=== PATIENT | female | born 1965 | race Caucasian/White ===

== ENCOUNTER 2023-11-02 11:27 | Outpatient (AMB) | payer OTHER, SELFPAY ==
--- NOTE | 2023-11-02 11:01 | MHC.PC.OV ---
Vital Signs 11/02/23 11:41 Height 5 ft 3.23 in Weight 208 lb 6 oz BMI 36.6 BP 108/86 Blood Pressure Location Lt brachial Position Sitting Respiration 16 Pulse 90 Pulse Source Pulse Oximeter Temp 97.9 F Temp Source Oral Pulse Oximetry (%) 99 Oxygen Delivery Method Room Air Intake Visit Reasons: new patient diabetes/ medication Intake Note: New patient visit Field Human Resources Manager Required: No Allergies acetaminophen [From Vicodin] Allergy (Mild, Verified 11/02/23 11:37) Nausea hydrocodone [From Vicodin] Allergy (Mild, Verified 11/02/23 11:37) Nausea Medication List - Last Reconciled 11/02/23 by Elida Segundo PA-C diltiazem HCl ER 120 mg PO DAILY empagliflozin (Jardiance) 10 mg PO DAILY metformin 500 mg PO BID metoprolol succinate ER 100 mg PO DAILY rosuvastatin 5 mg PO DAILY valsartan 160 mg PO DAILY Tobacco use date assessed: 11/02/23 Dental Screening Dental Screen Date: 11/02/23 Did you have a dental visit in the last 12 months?: No Did you have a dental problem in the last 6 months where you did not have access to dental care?: No Was dental information given to patient?: Patient has dentist HPI new patient diabetes/ medication HPI Details Patient is 58-year-old female who presents today to [facility]. She is transferring from a [facility]. She has a hx of SVT, htn, hyperlipidemia, and t2dm. -she does complain today of being sick with a cough and cold. In the past she has needed inhalers to help her with this. She says that she will get a little reactive airway with this but does not tolerate steroids due to the SVT. She also does not tolerate albuterol but needs levalbuterol as a nebulizer treatment. Overall feels like she is getting better. She does wake up in the morning wheezing. Endo: States that her diabetes is well managed. She is on metformin 500 mg twice a day, Jardiance 10 mg daily. Her last A1c was 6.5. She was diagnosed with type 2 diabetes 3 years ago. She is overdue for an eye exam. -she has a large fam hx t2dm. Declines any diabetic Education. She states that she has a very good understanding of diabetes and does not need help. -she is on an Arb and statin CV: Blood pressure today in the office is 108/86. She is on valsartan 160 mg daily, metoprolol 100 mg daily and diltiazem 120 mg daily. Cholesterol is controlled with Crestor 5 mg. Follows with cardiology q 4-6 months. She has never needed ablation. She has had 4 episodes of cardioversion. Mammogram: overdue pap: Feb 2023- reports wnl- Dr. Guadalupe Bone Density:overdue Former smoker-quit over 25 years ago. Colonoscopy: Overdue [facility] Medical History (Updated 11/02/23 @ 12:37 by Elida Segundo PA-C) Hernia SVT (supraventricular tachycardia) HTN (hypertension) Surgical History (Updated 11/02/23 @ 11:57 by Sara Paredes CMA) H/O section Family History (Updated 11/02/23 @ 11:56 by Sara Paredes CMA) Mother HTN (hypertension) High cholesterol Diabetes Thyroid disorder Father HTN (hypertension) High cholesterol Maternal Aunt No problems noted. Maternal Grandmother Diabetes Social History Housing: House Patient Tobacco Use Status: Former Tobacco user (quit 20 years ago) Cigarette Packs Per Day: 1 Years Smoked: 12 e-Cigarette/Vaping Use: Never Used Second Hand Smoke Exposure: No service: No Current occupational status: employed Current occupation: [employer] Current occupational exposures/hazards: No Cognitive needs: No Hearing needs: No Vision needs: Yes (reading glasses) Questionnaire PHQ-9 Over the last 2 weeks, how often have you been bothered by any of the following problems? 1. Little interest or pleasure in doing things: not at all 2. Feeling down, depressed, or hopeless: not at all 3. Trouble falling or staying asleep, or sleeping too much: not at all 4. Feeling tired or having little energy: not at all 5. Poor appetite or overeating: not at all 6. Feeling bad about yourself - or that you are a failure or have let yourself or your family down: not at all 7. Trouble concentrating on things, such as reading the newspaper or watching television: not at all 8. Moving or speaking so slowly that other people could have noticed. Or the opposite - being so fidgety or restless that you have been moving around a lot more than usual: not at all 9. Thoughts that you would be better off or of hurting yourself in some way: not at all Total score: 0 Depression Screening Interpretation: Negative Depression Screening Done: Yes 45081 - PHQ-9 Billing: Yes Source: Developed by Drs. Venkatesh Yang, Yany Meredith, Campos Castro and colleagues, with an educational jose elias from [employer]. Thrive Questionnaire Date Thrive assessed: 11/02/23 I am a: Patient What is your living situation today?: I have a steady place to live Within the past 12 months, did the food you bought not last and you didn't have the money to get more?: Never true Within the past 12 months, did you worry whether your food would run out before you got money to buy more?: Never true Do you have trouble paying for medicines?: No Do you have trouble getting transportation to medical appointments?: No Do you have trouble paying your heating and electricity bill?: No Do you have trouble taking care of your child, family member or friend?: No Do you have trouble with day-to-day activities such as bathing, preparing meals, shopping, managing finances, etc.?: No Are you currently unemployed and looking for a job?: No Are you interested in more education?: No Please select the resources that you would like help with: None Currently or been in a relationship where the following occur: No concerns reported THRIVE Score: 0 AUDIT C Alcohol Use Questionnaire (AUDIT-C) 1. How often do you have a drink containing alcohol?: 2-4 times a month 2. How many drinks containing alcohol do you have on a typical day when you are drinking?: 1 or 2 3. How often do you have six or more drinks on one occasion?: Never Total Score: 2 ABBIE-7 AMB Questionnaire ABBIE-7 Date ABBIE - 7 assessed: 11/02/23 Feeling nervous, anxious, or on edge: 0 = Not at all Not being able to stop or control worryin = Not at all Worrying too much about different things: 0 = Not at all Trouble relaxin = Not at all Being so restless that it is hard to sit still: 0 = Not at all Becoming easily annoyed or irritable: 0 = Not at all Feeling afraid as if something awful might happen: 0 = Not at all Total ABBIE-7 score (0-4 normal; 5-9 mild; 10-14 moderate; 15-21 severe): 0 Source: Developed by Drs. Venkatesh Yang, Yany Meredith, Campos Castro and colleagues, with an educational jose elias from [employer]. ABBIE-7 Assessment Billing ABBIE-7 Assessment Tool: ABBIE-7 Assessment 50684 Physical exam (Primary Care) Vital Signs: Last Vital Signs Temp 97.9 F 11/02/23 11:41 Pulse 90 11/02/23 11:41 Resp 16 11/02/23 11:41 BP 108/86 11/02/23 11:41 Pulse Ox 99 11/02/23 11:41 Oxygen Delivery Method Room Air 11/02/23 11:41 BMI result Body Mass Index 36.6 Tobacco/Smoking Status: Tobacco use Status Tobacco use date assessed 11/02/23 11/02/23 11:05 Patient Tobacco Use Status Former Tobacco user (quit 20 11/02/23 11:44 years ago) e-Cigarette/Vaping Use Never Used 11/02/23 11:05 PHQ-9: PHQ-9 Score PHQ-9: Total score 0 11/02/23 11:52 Depression Screening Interpretation: Negative Thrive Assessment: Date of Thrive Assessment Date Thrive assessed 11/02/23 11/02/23 11:52 Currently or been in a relationship where the following occur: No concerns reported Const Orientation/consciousness: patient oriented x3 HENMT Ears: hearing grossly normal bilaterally Neck Thyroid: Thyroid normal Lymphatic: no lymphadenopathy noted Resp Auscultation: clear to auscultation bilaterally Cardio Rate: regular rate Rhythm: regular rhythm Heart sounds: S1 normal heart sound present and S2 normal heart sound present GI Inspection: Yes normal to inspection Palpation (GI): Soft to palpation and Other GI palpation findings present (nontender, no cva tenderness) Auscultation: normoactive bowel sounds Rectal Exam - Female: deferred Skin General skin exam: no rashes or lesions noted Neuro General: patient oriented x3, gait normal and no focal motor deficits Assessment and Plan Assessment & Plan (1) HTN (hypertension): Code(s): I10 - Essential (primary) hypertension Qualifiers: Hypertension type: primary hypertension Qualified Code(s): I10 - Essential (primary) hypertension Plan: Continue current regimen. Managed by Cardiology (2) Controlled type 2 diabetes mellitus: Code(s): E11.9 - Type 2 diabetes mellitus without complications Qualifiers: Diabetes mellitus mcc insulin use: without intermediate school teacher use Diabetes mellitus complication status: without complication Qualified Code(s): E11.9 - Type 2 diabetes mellitus without complications Plan: Denies any known complications associated with the diabetes. Labs ordered today. We will follow up pending test results. Refills will be provided. (3) Hyperlipidemia: Code(s): E78.5 - Hyperlipidemia, unspecified Qualifiers: Hyperlipidemia type: pure hypercholesterolemia Qualified Code(s): E78.00 - Pure hypercholesterolemia, unspecified Plan: Lipids and LFTs ordered. Continue Crestor. (4) Paroxysmal SVT (supraventricular tachycardia): Code(s): I47.10 - Supraventricular tachycardia, unspecified Plan: Stable. Well-controlled with metoprolol and diltiazem. (5) Viral URI with cough: Code(s): J06.9 - Acute upper respiratory infection, unspecified Plan: Exam is reassuring. We will really feel nebulizer solution. We will start her on Asmanex to use. Advised to rinse mouth out with each use Plan Mammogram, bone density and colonoscopy ordered. Orders: Orders XR DEXA axial skeleton Today Z78.0 - Asymptomatic menopausal state Comprehensive Pooler. Panel Fast Today E11.9 - Type 2 diabetes mellitus without complications, E78.5 - Hyperlipidemia, unspecified, I10 - Essential (primary) hypertension, I47.10 - Supraventricular tachycardia, unspecified Microalbumin, Random (w Creat) Today E11.9 - Type 2 diabetes mellitus without complications, E78.5 - Hyperlipidemia, unspecified, I10 - Essential (primary) hypertension, I47.10 - Supraventricular tachycardia, unspecified MM screening mammo BI Today Z12.31 - Encounter for screening mammogram for malignant neoplasm of breast Complete Blood Count Auto Diff Today E11.9 - Type 2 diabetes mellitus without complications, E78.5 - Hyperlipidemia, unspecified, I10 - Essential (primary) hypertension, I47.10 - Supraventricular tachycardia, unspecified Hemoglobin A1c Today E11.9 - Type 2 diabetes mellitus without complications, E78.5 - Hyperlipidemia, unspecified, I10 - Essential (primary) hypertension, I47.10 - Supraventricular tachycardia, unspecified Lipid Panel Today E11.9 - Type 2 diabetes mellitus without complications, E78.5 - Hyperlipidemia, unspecified, I10 - Essential (primary) hypertension, I47.10 - Supraventricular tachycardia, unspecified TSH reflex Free T4 Today E11.9 - Type 2 diabetes mellitus without complications, E78.5 - Hyperlipidemia, unspecified, I10 - Essential (primary) hypertension, I47.10 - Supraventricular tachycardia, unspecified Referrals Gastroenterology Referral I47.10 - Supraventricular tachycardia, unspecified, Z12.11 - Encounter for screening for malignant neoplasm of colon Medications: New mometasone 100 mcg/actuation (Asmanex HFA) 1 puff inhalation BID 13 grams 1RF levalbuterol HCl 0.31 mg (3 mL) inhalation Q8H PRN 72 mL 1RF shortness of breath or wheezing Coding Level of Care Code New Pt Level 4 (18284) Complex EM visit Add On G2211 Diagnoses Primary hypertension I10 Hypertension type: primary hypertension Controlled type 2 diabetes mellitus without complication, without long-term current use of insulin E11.9 Diabetes mellitus intermediate school teacher insulin use: without intermediate school teacher use Diabetes mellitus complication status: without complication Pure hypercholesterolemia E78.00 Hyperlipidemia type: pure hypercholesterolemia Paroxysmal SVT (supraventricular tachycardia) I47.10 Viral URI with cough J06.9 Additional Codes ABBIE-7 Assessment Billing - ABBIE-7 Assessment Tool: ABBIE-7 Assessment [id number] ([id number])
[2023-11-02 11:41] VITALS: BP 108/86; PULSE 90; RESP 16; TEMP 36.6; O2SAT 99; BMI 36.6
== END 2023-11-02 15:18 | disposition home or self-care (01) ==
PROVIDERS: Visit Provider Physician Assistant
DX: I10 Essential (primary) hypertension (principal); E11.9 Type 2 diabetes mellitus without complications; I47.10 Supraventricular tachycardia, unspecified; E78.00 Pure hypercholesterolemia, unspecified; J06.9 Acute upper respiratory infection, unspecified
CPT/HCPCS: 99204; G2211

== ENCOUNTER 2023-11-14 07:40 | Outpatient (REF) | payer OTHER, SELFPAY ==
[2023-11-14 11:20] LABS: MANUAL DIFF FLAG NO
[2023-11-14 11:28] LABS: Basophils Absolute Auto 0.1 X10*3/uL (0.0-0.2); Basophils Percent Auto 1.1 % (0-2); Eosinophils Absolute Auto 0.2 X10*3/uL (0.0-0.4); Eosinophils Percent Auto 3.2 % (0-4); Hematocrit 46.1 % (37.0-47.0); Hemoglobin 15.5 g/dl (12.0-16.0); Imm Gran Abs Auto 0.03 X10*3/uL (0.00-0.03); Imm Gran Pct Auto 0.5 % (0.0-0.4); Lymphocytes Absolute Auto 2.1 X10*3/uL (1.2-4.9); Lymphocytes Percent Auto 33.6 % (20-40); Mean Corpuscular HGB Conc 33.6 g/dl (31.0-35.0); Mean Corpuscular Volume 95.2 fL (80.0-98.0); Mean Platelet Volume 9.9 fL (9.4-12.3); Monocytes Absolute Auto 0.6 X10*3/uL (0.1-1.2); Neutrophils Absolute Auto 3.2 x10*3/uL (2.0-8.3); Neutrophils Percent Auto 51.6 % (45-73); Platelet Count 297 X10*3/uL (160-400); Red Blood Count 4.84 X10*6/uL (4.20-5.50); Red Cell Distribution Width 11.9 % (11.0-16.0); White Blood Count 6.2 X10*3/uL (4.8-10.8)
[2023-11-14 11:45] LABS: Estimated Average Glucose 128 mg/dL; Hemoglobin A1c % 6.1 % (<6.0); Total Hemoglobin (HGBA1C) 3818.6153 umol/L
[2023-11-14 11:57] LABS: Alanine Aminotransferase 19 U/L (0-31); Albumin Level 4.2 g/dL (3.5-5.0); Alkaline Phosphatase 81 U/L (39-117); Anion Gap 13 (12-20); Aspartate Amino Transferase 13 U/L (5-31); Bilirubin Total 0.6 mg/dL (0.0-1.0); Blood Urea Nitrogen 14 mg/dL (9-16); Calcium 9.5 mg/dL (8.4-10.2); Carbon Dioxide 27 mmol/L (22-29); Chloride 106 mmol/L (96-108); Cholesterol 174 mg/dL (<200); Estimated Glomerular Filt Rate > 60; Glucose Fasting 139 mg/dL (60-99); HDL Cholesterol 42 mg/dL (>40); LDL Cholesterol Calculated 107 mg/dL (<100); Sodium 142 mmol/L (135-145); Triglycerides 128 mg/dL (<150)
[2023-11-14 12:03] LABS: TSH reflex Free T4 1.56 uIU/mL (0.32-4.0)
[2023-11-14 12:14] LABS: Microalbum/Creatinine Ratio Ur 6.5 ug/mg cr (<30)
== END 2023-11-14 07:41 | disposition home or self-care (01) ==
LOC: HO.WFDLDS 07:40
PROVIDERS: Visit Provider Physician Assistant
DX: E11.9 Type 2 diabetes mellitus without complications (principal); I10 Essential (primary) hypertension; E78.5 Hyperlipidemia, unspecified; I47.10 Supraventricular tachycardia, unspecified
CPT/HCPCS: 36415; 80053; 80061; 82043; 82570; 83036; 84443; 85025

== ENCOUNTER 2023-11-23 08:21 | Outpatient (AMB) | payer OTHER, SELFPAY ==
[2023-11-23 08:40] VITALS: BP 108/64; PULSE 82; RESP 14; O2SAT 95; BMI 35.9
--- NOTE | 2023-11-23 08:40 | A.OFFPC_ITS ---
Vital Signs 11/23/23 08:40 Height 5 ft 3.23 in Weight 204 lb 4 oz BMI 35.9 BP 108/64 Blood Pressure Location Rt brachial Position Sitting Respiration 14 Pulse 82 Pulse Source Pulse Oximeter Pulse Oximetry (%) 95 Oxygen Delivery Method Room Air Intake Visit Reasons: Regular visit Intake Note: Follow up. Discuss lab work Senior Data Integration Developer Required: No Allergies acetaminophen [From Vicodin] Allergy (Mild, Verified 11/23/23 08:40) Nausea hydrocodone [From Vicodin] Allergy (Mild, Verified 11/23/23 08:40) Nausea Medication List - Last Reconciled 11/23/23 by Elida Segundo PA-C diltiazem HCl ER 120 mg PO DAILY empagliflozin (Jardiance) 10 mg PO DAILY fluticasone propionate 110 mcg/actuation 1 puff inhalation BID levalbuterol HCl 0.31 mg (3 mL) inhalation Q8H PRN metformin 500 mg PO BID metoprolol succinate ER 100 mg PO DAILY rosuvastatin 5 mg PO DAILY valsartan 160 mg PO DAILY Tobacco use date assessed: 11/02/23 Dental Screening Dental Screen Date: 11/02/23 HPI Regular visit HPI Details Patient is 58-year-old female who presents today for a follow up. She states that she made this appointment to review her labs. She has a hx of SVT, htn, hyperlipidemia, and t2dm. -she does state since our last visit she has had a cough with some intermittent sputum production. She states it feels like her cold never fully went away. She has been using nebulizers in the morning which has been very helpful. No sinus pain but does intermittently feel congested. No fevers or chills. No shortness a breath. Endo: States that her diabetes is well managed. She is on metformin 500 mg twice a day, Jardiance 10 mg daily. Her last A1c was 6.5. She was diagnosed with type 2 diabetes 3 years ago. She is overdue for an eye exam. -she has a large fam hx t2dm. Declines any diabetic Education. She states that she has a very good understanding of diabetes and does not need help. -she is on an Arb and statin CV: Blood pressure today in the office is 108/64. She is on valsartan 160 mg daily, metoprolol 100 mg daily and diltiazem 120 mg daily. Cholesterol is controlled with Crestor 5 mg every other day. Follows with cardiology q 4-6 months. She has never needed ablation. She has had 4 episodes of cardioversion. Mammogram: overdue-ordered pap: Feb 2023- reports wnl- Dr. Guadalupe Bone Density:overdue-ordered Former smoker-quit over 25 years ago. Colonoscopy: Overdue -referred [facility] Medical History (Updated 11/02/23 @ 12:37 by Elida Segundo PA-C) Hernia SVT (supraventricular tachycardia) HTN (hypertension) Surgical History (Updated 11/02/23 @ 11:57 by Sara Paredes CMA) H/O section Family History (Updated 11/02/23 @ 11:56 by Sara Paredes CMA) Mother HTN (hypertension) High cholesterol Diabetes Thyroid disorder Father HTN (hypertension) High cholesterol Maternal Aunt No problems noted. Maternal Grandmother Diabetes Social History Housing: House Patient Tobacco Use Status: Former Tobacco user (quit 20 years ago) Cigarette Packs Per Day: 1 Years Smoked: 12 e-Cigarette/Vaping Use: Never Used Second Hand Smoke Exposure: No service: No Current occupational status: employed Current occupation: [employer] Current occupational exposures/hazards: No Cognitive needs: No Hearing needs: No Vision needs: Yes (reading glasses) Questionnaire Thrive Questionnaire Date Thrive assessed: 11/02/23 I am a: Patient What is your living situation today?: I have a steady place to live Within the past 12 months, did the food you bought not last and you didn't have the money to get more?: Never true Within the past 12 months, did you worry whether your food would run out before you got money to buy more?: Never true Do you have trouble paying for medicines?: No Do you have trouble getting transportation to medical appointments?: No Do you have trouble paying your heating and electricity bill?: No Do you have trouble taking care of your child, family member or friend?: No Do you have trouble with day-to-day activities such as bathing, preparing meals, shopping, managing finances, etc.?: No Are you currently unemployed and looking for a job?: No Are you interested in more education?: No Please select the resources that you would like help with: None Currently or been in a relationship where the following occur: I choose not to answer THRIVE Score: 0 ABBIE-7 AMB Questionnaire ABBIE-7 Date ABBIE - 7 assessed: 11/02/23 Becoming easily annoyed or irritable: 0 = Not at all Source: Developed by Drs. Venkatesh Yang, Yany Meredith, Campos Castro and colleagues, with an educational jose elias from [employer]. Physical exam (Primary Care) Vital Signs: Last Vital Signs Pulse 82 11/23/23 08:40 Resp 14 11/23/23 08:40 BP 108/64 11/23/23 08:40 Pulse Ox 95 11/23/23 08:40 Oxygen Delivery Method Room Air 11/23/23 08:40 BMI result Body Mass Index 35.9 Tobacco/Smoking Status: Tobacco use Status Tobacco use date assessed 11/02/23 11/23/23 08:43 Patient Tobacco Use Status Former Tobacco user (quit 20 11/23/23 08:43 years ago) e-Cigarette/Vaping Use Never Used 11/23/23 08:43 Thrive Assessment: Date of Thrive Assessment Date Thrive assessed 11/02/23 11/23/23 08:43 Currently or been in a relationship where the following occur: I choose not to answer Const Orientation/consciousness: patient oriented x3 HENMT Other: TMs slightly dome-shaped a small air-fluid levels. Negative tug test. Nasal mucosa WNL. No sinus tenderness Ears: hearing grossly normal bilaterally Neck Thyroid: Thyroid normal Lymphatic: no lymphadenopathy noted Resp Other: Scattered rhonchi which clear with coughing. Cardio Rate: regular rate Rhythm: regular rhythm Heart sounds: S1 normal heart sound present and S2 normal heart sound present GI Inspection: Yes normal to inspection Palpation (GI): Soft to palpation and Other GI palpation findings present (nontender, no cva tenderness) Auscultation: normoactive bowel sounds Rectal Exam - Female: deferred Skin General skin exam: no rashes or lesions noted Neuro General: patient oriented x3, gait normal and no focal motor deficits Results Reviewed Results Reviewed: Laboratory Tests 11/14/23 07:42 Sodium 142 Potassium 4.0 Chloride 106 Carbon Dioxide 27 Anion Gap 13 BUN 14 Creatinine 0.63 Estimated GFR > 60 Hemoglobin A1c % 6.1 H AST 13 ALT 19 Triglycerides 128 Cholesterol 174 LDL Cholesterol, Calc 107 H HDL Cholesterol 42 TSH 1.56 Coding Level of Care Code Est Pt Level 4 (60369) Complex EM visit Add On G2211 Diagnoses Pure hypercholesterolemia E78.00 Hyperlipidemia type: pure hypercholesterolemia Primary hypertension I10 Hypertension type: primary hypertension Controlled type 2 diabetes mellitus without complication, without long-term current use of insulin E11.9 Diabetes mellitus penitentiary insulin use: without exterminator helper termite use Diabetes mellitus complication status: without complication Bronchitis J40 Assessment & Plan Assessment & Plan (1) Hyperlipidemia: Code(s): E78.5 - Hyperlipidemia, unspecified Category: Medical Qualifiers: Hyperlipidemia type: pure hypercholesterolemia Qualified Code(s): E78.00 - Pure hypercholesterolemia, unspecified Plan: Continue current regimen. Reviewed labs. States that this is the best her cholesterol has looked and she does report that she does not take the Crestor daily. (2) HTN (hypertension): Code(s): I10 - Essential (primary) hypertension Category: Medical Qualifiers: Hypertension type: primary hypertension Qualified Code(s): I10 - Essential (primary) hypertension Plan: WNL. Continue current regimen (3) Controlled type 2 diabetes mellitus: Code(s): E11.9 - Type 2 diabetes mellitus without complications Category: Medical Qualifiers: Diabetes mellitus penitentiary insulin use: without exterminator helper termite use Diabetes mellitus complication status: without complication Qualified Code(s): E11.9 - Type 2 diabetes mellitus without complications Plan: Well-controlled (4) Bronchitis: Code(s): J40 - Bronchitis, not specified as acute or chronic Plan: We will start azithromycin. Discussed risks and benefits and adverse effects of this medication. Does not tolerate steroids. Continue using nebulizer as needed. Follow up if no improvement or if anything worsens or changes. Patient understands and agrees with the plan. Medications: New azithromycin For 250 mg dose pack: take 500 mg today (day 1), then 250 mg for 4 days (days 2-5) PO 6 tabs 0RF
== END 2023-11-23 10:44 | disposition home or self-care (01) ==
PROVIDERS: PCP Physician Assistant; Visit Provider Physician Assistant
DX: E78.00 Pure hypercholesterolemia, unspecified (principal); I10 Essential (primary) hypertension; E11.9 Type 2 diabetes mellitus without complications; J40 Bronchitis, not specified as acute or chronic

== ENCOUNTER → 2023-11-23 08:21 | Outpatient (BNVA) | payer OTHER, SELFPAY | PROVIDERS: Visit Provider Physician Assistant | DX: E11.9 Type 2 diabetes mellitus without complications (principal); E78.00 Pure hypercholesterolemia, unspecified; I10 Essential (primary) hypertension; J40 Bronchitis, not specified as acute or chronic | CPT/HCPCS: 99212 ==

== ENCOUNTER 2024-01-25 10:56 | Outpatient (AMB) | payer OTHER, SELFPAY ==
--- NOTE | 2024-01-25 11:21 | A.OFFPC_ITS ---
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 Allergies acetaminophen [From Vicodin] Allergy (Mild, Verified 01/25/24 11:21) Nausea hydrocodone [From Vicodin] Allergy (Mild, Verified 01/25/24 11:21) Nausea Medication List - Last Reconciled 01/25/24 by Elida Segundo PA-C diltiazem HCl ER 120 mg PO DAILY empagliflozin (Jardiance) 10 mg PO DAILY fluticasone propionate 110 mcg/actuation 1 puff inhalation BID metformin 500 mg PO BID metoprolol succinate ER 100 mg PO DAILY rosuvastatin 5 mg PO DAILY valsartan 160 mg PO DAILY Tobacco use date assessed: 11/02/23 Dental Screening Dental Screen Date: 11/02/23 HPI LEFT SHOULDER PAIN HPI Details History of Present Illness The patient is a 58-year-old female presenting with painful left shoulder discomfort. This condition began approximately six weeks ago. The patient has a history of frozen shoulder on the contralateral side nearly four years ago. She initially attempted similar exercises to relieve the current symptoms but found them ineffective. The pain is located in the anterior shoulder region, frequently radiating down the arm to the elbow and occasionally extending to the collarbone. The patient describes the pain as sharp at times, with a characteristic aching quality and limited range of motion; there is associated stiffness. She experiences difficulty in performing tasks that involve the left arm, like reaching out to the drive-thru window. The patient initially managed her pain with ibuprofen, which provided relief, but discontinued its use following elevated blood pressure readings of 180/100 mmHg, likely induced by the medication. Since then, she has been using ice for pain relief. The patient has also expressed concern regarding potential shoulder injections due to her mother's history with significant blood sugar elevations following cortisone injections, and since she has diabetes. Endo: Her diabetes is currently well managed with an A1c of 6.1. She is controlled with metformin 500 mg twice a day and Jardiance 10 mg daily. CV: Her blood pressure is managed with diltiazem, valsartan and metoprolol. Blood pressure today in the office is WNL. No chest pain, shortness on breath or palpitations. Social History - The patient frequently engages in acti vities with her daughter, such as coffee runs. 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 Review of Systems - Musculoskeletal: Reports anterior left shoulder pain radiating to the elbow and collarbone, limited range of motion. - Cardiovascular: Denies chest pain. - Respiratory: Denies shortness of breat h. Physical Exam General: Cooperative, healthy appearing, comfortable, no acute distress and well developed Orientation: Patient oriented x3 Limitations: Limited range of motion in the left shoulder, painful Head: Normal to inspection Ears: Hearing grossly normal bilaterally Nose: Normal external nose present Face and sinus: Normal facial exam Eyes: Appearance normal, both eyes and all related structures Neck: Normal visual inspection and Yes full ROM Respiratory: Normal respiratory effort and able to speak in complete sentences. Clear to auscultation bilaterally Cardiovascular: Regular rate and rhythm. Normal S1 and S2 GI: Normal to inspection. Soft to palpation and nontender Skin: No rashes or lesions noted Neuro: Patient oriented x3 Extremities: Tenderness in the left shoulder, Range of motion limited due to pain. normal road mender strength, normal reflexes, normal pulses , sensation intact Results Plan - For the painful left shoulder: An x-ra y of the left shoulder will be conducted to evaluate the underlying condition further. The patient has been advised to continue icing the area and engage in pendulum swing exercises. A trial of meloxicam once daily has been initiated to manage inflammation and pain. a - Follow-up with [facility] is recommended for a specialized evaluation, given the limited range of motion and the previous history of frozen shoulder. - The patient should monitor blood press ure closely and discontinue meloxicam if significant elevations occur. If blood sugars begin to rise due to any intervention, an increase in metformin dosage may be considered. - Continue current hypertension and diab etes medications: Diltiazem, Valsartan, Metoprolol, Metformin, and Jardiance. Advised to contact me if she gets the cortisone injection and blood sugars elevate. Discussed that we could increase the metformin temporarily. We did discuss also other regimens for diabetes such as insulin to help if needed. Patient was informed and verbally consented to the use of an ambient scribe for clinic note documentation during this visit. Discussion Notes I discussed with the patient the likelihood of a recurrent issue such as adhesive capsulitis (frozen shoulder), considering her symptoms' similarity to her prior experience. I explained the x-ray's role in ruling out any bone lesions or other issues that could be contributing to the pain. I addressed her concerns about cortisone injections, emphasizing potential risks of elevated blood sugars but reassuring that preemptive management and her current A1c levels suggest a low risk for severe hyperglycemic events. We reviewed the alternative use of meloxicam for inflammation management, considering her hypertension history. Additionally, I encouraged the continued use of physical therapy exercises and home management with ice and heat. The potential need to adjust her diabetes medication if any procedures are planned at orthopedics was explained, along with close blood sugar monitoring as a precautionary measure. The patient was advised to send a message through the portal once she has the x- ray results for timely follow-up. Patient Instructions - Obtain an x-ray of the left shoulder. - Schedule an appointment with [facility] for further evaluation. - Start taking meloxicam once daily and discontinue if blood pressure rises. - Continue physical therapy exercises: p endulum swings and stretching. - Apply ice and alternate with heat as a dvised to manage pain and possible inflammation. - Monitor blood pressure and blood sugar s closely, especially if any intervent ion is performed. - Send a portal message to update on alfredo gnostic results and any new symptoms. [facility] Medical History (Updated 01/25/24 @ 11:38 by Elida Segundo PA-C) Hernia SVT (supraventricular tachycardia) HTN (hypertension) Surgical History H/O section Family History Mother HTN (hypertension) High cholesterol Diabetes Thyroid disorder Father HTN (hypertension) High cholesterol Maternal Aunt No problems noted. Maternal Grandmother Diabetes Social History (Updated 01/25/24 @ 11:25 by Sara Paredes CMA) Housing: House Alcohol intake: current Patient Tobacco Use Status: Former Tobacco user (quit 20 years ago) Cigarette Packs Per Day: 1 Years Smoked: 12 e-Cigarette/Vaping Use: Never Used Second Hand Smoke Exposure: No service: No Current occupational status: employed Current occupation: [employer] Current occupational exposures/hazards: No Cognitive needs: No Hearing needs: No Vision needs: Yes (reading glasses) Questionnaire Thrive Questionnaire Date Thrive assessed: 11/02/23 I am a: Patient What is your living situation today?: I have a steady place to live Within the past 12 months, did the food you bought not last and you didn't have the money to get more?: Never true Within the past 12 months, did you worry whether your food would run out before you got money to buy more?: Never true Do you have trouble paying for medicines?: No Do you have trouble getting transportation to medical appointments?: No Do you have trouble paying your heating and electricity bill?: No Do you have trouble taking care of your child, family member or friend?: No Do you have trouble with day-to-day activities such as bathing, preparing meals, shopping, managing finances, etc.?: No Are you currently unemployed and looking for a job?: No Are you interested in more education?: No Please select the resources that you would like help with: None Currently or been in a relationship where the following occur: I choose not to answer THRIVE Score: 0 ABBIE-7 AMB Questionnaire ABBIE-7 Date ABBIE - 7 assessed: 11/02/23 Source: Developed by Drs. Venkatesh Yang, Yany Meredith, Campos Castro and colleagues, with an educational jose elias from [employer] Physical exam (Primary Care) Vital Signs: Last Vital Signs Pulse 77 01/25/24 11:24 BP 136/80 01/25/24 11:24 Pulse Ox 95 01/25/24 11:24 Oxygen Delivery Method Room Air 01/25/24 11:24 BMI result Body Mass Index 35.2 Tobacco/Smoking Status: Tobacco use Status Tobacco use date assessed 11/02/23 01/25/24 11:26 Patient Tobacco Use Status Former Tobacco user (quit 20 01/25/24 11:26 years ago) e-Cigarette/Vaping Use Never Used 01/25/24 11:26 Thrive Assessment: Date of Thrive Assessment Date Thrive assessed 11/02/23 12 11:26 Currently or been in a relationship where the following occur: I choose not to answer Coding Level of Care Code Est Pt Level 4 (21915) Complex EM visit Add On G2211 Diagnoses Primary hypertension I10 Hypertension type: primary hypertension Controlled type 2 diabetes mellitus without complication, without long-term current use of insulin E11.9 Diabetes mellitus complication status: without complication Diabetes mellitus termite exterminator insulin use: without termite exterminator use Left shoulder pain M25.512 Assessment & Plan Assessment & Plan (1) HTN (hypertension): Code(s): I10 - Essential (primary) hypertension Category: Medical Qualifiers: Hypertension type: primary hypertension Qualified Code(s): I10 - Essential (primary) hypertension (2) Controlled type 2 diabetes mellitus: Code(s): E11.9 - Type 2 diabetes mellitus without complications Category: Medical Qualifiers: Diabetes mellitus complication status: without complication Diabetes mellitus termite exterminator insulin use: without termite exterminator use Qualified Code(s): E11.9 - Type 2 diabetes mellitus without complications (3) Left shoulder pain: Code(s): M25.512 - Pain in left shoulder Category: Medical Plan . Orders: Orders XR shoulder LT min 2V Today M25.512 - Pain in left shoulder Referrals Orthopedics Referral M25.512 - Pain in left shoulder Medications: New meloxicam 15 mg PO DAILY 30 tabs 0RF
[2024-01-25 11:24] VITALS: BP 136/80; PULSE 77; O2SAT 95; BMI 35.2
--- OUTSIDE RECORDS SUMMARY | 2024-01-31 17:50 | XMS_ITS | Continuity of Care Document ---
Author Name [facility] Organization [facility] Care Team Providers Care Facilities Specialist Name Role Phone [facility] Unavailable Unavailable Medications Combined list of outpatient medications from Department of Defense and Veterans Affairs facilities.Medications provided include 1) outpatient medications from the last 15 months, and 2) patient-reported medications. Medication Details Route Status Patient Instructions Prescription Expires Prescription Number Last Dispense Date Ordering Provider Order Date Order Qty Source AMOXICILLIN -CLAVULANAT E POTASS (amoxicilli n/potassium clavulanate ), 875-125 MG, TABLET, ORAL, [employer],, 20 ea. BOTTLE Active [id number] 4 2023 20 Pharmac y Data Transac tion Service Facilit y CLOTRIMAZOL E-BETAMETHA SONE (CLOTRIMAZO LE/BETAMET DIPROP), 1-0.05%, CREAM(GM), TOPICAL, FOUGERA, 15 g TUBE Active [id number] 4 2023 45 Pharmac y Data Transac tion Service Facilit y DILTIAZEM 24HR ER (LA) (diltiazem HCl), 120 MG, TAB ER 24H, ORAL, OCEANSIDE PHARM, 30 ea. BOTTLE Cancele d [id number] : 2023 0 Pharmac y Data Transac tion Service Facilit y DILTIAZEM 24HR ER (LA) (diltiazem HCl), 120 MG, TAB ER 24H, ORAL, OCEANSIDE PHARM, 90 ea. BOTTLE Active [id number] 4 2023 90 Pharmac y Data Transac tion Service Facilit y DILTIAZEM 24HR ER (LA) (diltiazem HCl), 120 MG, TAB ER 24H, ORAL, OCEANSIDE PHARM, 90 ea. BOTTLE Active [id number] 4 2023 90 Pharmac y Data Transac tion Service Facilit y DILTIAZEM 24HR ER (LA) (diltiazem HCl), 120 MG, TAB ER 24H, ORAL, OCEANSIDE PHARM, 90 ea. BOTTLE Active [id number] 4 2023 90 Pharmac y Data Transac tion Service Facilit y DILTIAZEM 24HR ER (LA) (diltiazem HCl), 120 MG, TAB ER 24H, ORAL, OCEANSIDE PHARM, 90 ea. BOTTLE Cancele d [id number] : 2023 0 Pharmac y Data Transac tion Service Facilit y DILTIAZEM 24HR ER (LA) (diltiazem HCl), 120 MG, TAB ER 24H, ORAL, OCEANSIDE PHARM, 90 ea. BOTTLE Active [id number] 4 2023 90 Pharmac y Data Transac tion Service Facilit y ERYTHROMYCI N (ERYTHROMYC IN BASE), 5MG/G, OINT.(GM), OPHTHALMIC, BAUSCH &LOMB RX, 3.5 g TUBE Active [id number] 4 2023 3.5 Pharmac y Data Transac tion Service Facilit y FLUCONAZOLE (FLUCONAZOL E), 150 MG, TABLET, ORAL, ChemDAQON PHARMA L, 12 ea. BLIST PACK Active [id number] 4 2023 3 Pharmac y Data Transac tion Service Facilit y FLUCONAZOLE (FLUCONAZOL E), 150 MG, TABLET, ORAL, 'S LAB, 12 ea. BLIST PACK Active [id number] 4 2023 3 Pharmac y Data Transac tion Service Facilit y JARDIANCE (EMPAGLIFLO ZIN), 10 MG, TABLET, ORAL, BOEHRINGER ING., 90 ea. BOTTLE Active [id number] 4 2023 90 Pharmac y Data Transac tion Service Facilit y JARDIANCE (EMPAGLIFLO ZIN), 10 MG, TABLET, ORAL, BOEHRINGER ING., 90 ea. BOTTLE Active [id number] 2023 90 Pharmac y Data Transac tion Service Facilit y METFORMIN HCL (METFORMIN HCL), 500MG, TABLET, ORAL, AUROBINDO PHARM, 100 ea. BOTTLE Active [id number] 4 2023 60 Pharmac y Data Transac tion Service Facilit y METFORMIN HCL (METFORMIN HCL), 500MG, TABLET, ORAL, AUROBINDO PHARM, 100 ea. BOTTLE Active [id number] 4 2023 60 Pharmac y Data Transac tion Service Facilit y METFORMIN HCL (METFORMIN HCL), 500MG, TABLET, ORAL, AUROBINDO PHARM, 100 ea. BOTTLE Cancele d [id number] : 2023 0 Pharmac y Data Transac tion Service Facilit y METRONIDAZO LE (METRONIDAZ OLE), 500 MG, TABLET, ORAL, [facility], 100 ea. BOTTLE Active [id number] 4 2023 14 Pharmac y Data Transac tion Service Facilit y VALSARTAN (VALSARTAN) , 160 MG, TABLET, ORAL, [facility] 90 ea. BOTTLE Active [id number] 2023 90 Pharmac y Data Transac tion Service Facilit y VALSARTAN (VALSARTAN) , 160 MG, TABLET, ORAL, [facility] 90 ea. BOTTLE Active [id number] 4 2023 90 Pharmac y Data Transac tion Service Facilit y Immunizations Combined list of available immunizations from the Department of Defense and Veterans Affairs facilities. Immunization Series Date Given Administered By Site Reaction Lot Number CVX Code Drug Transitional Care Liaison Status Comments Source COVID-19, mRNA, LNP-S, PF, 100 mcg or 50 mcg dose 2020 MILO, () Not Given COVID-19, mRNA, LNP-S, PF, 100 mcg or 50 mcg dose DoD COVID-19, mRNA, LNP-S, PF, 100 mcg or 50 mcg dose 2020 TATA, () Not Given COVID-19, mRNA, LNP-S, PF, 100 mcg or 50 mcg dose DoD COVID-19, mRNA, LNP-S, PF, 100 mcg or 50 mcg dose 2020 CARLOS, () Not Given COVID-19, mRNA, LNP-S, PF, 100 mcg or 50 mcg dose DoD COVID-19, mRNA, LNP-S, PF, 100 mcg or 50 mcg dose 2020 CARLOS, () Not Given COVID-19, mRNA, LNP-S, PF, 100 mcg or 50 mcg dose DoD influenza, injectable, quadrivalent, preservative free 2019 MEYER, () Not Given influenza , injectabl e, quadrival ent, preservat indira free DoD Influenza, injectable, MDCK, preservative free, quadrivalent 2018 MEYER, () Not Given Influenza , injectabl e, MDCK, preservat indira free, quadrival ent DoD Social History Combined list of available smoking, tobacco, and other social history from Department of Defense and Veterans Affairs facilities. Social History Type Response Date Comment [facility] e This section is an empty social history section. DoD
== END 2024-01-25 13:39 | disposition home or self-care (01) ==
PROVIDERS: PCP Physician Assistant; Visit Provider Physician Assistant
DX: I10 Essential (primary) hypertension (principal); E11.9 Type 2 diabetes mellitus without complications; M25.512 Pain in left shoulder

== ENCOUNTER → 2024-01-25 10:56 | Outpatient (BNVA) | payer OTHER, SELFPAY | PROVIDERS: PCP Physician Assistant; Visit Provider Physician Assistant | DX: I10 Essential (primary) hypertension (principal); E11.9 Type 2 diabetes mellitus without complications; M25.512 Pain in left shoulder | CPT/HCPCS: 99212 ==

== ENCOUNTER 2024-03-05 08:01 | Outpatient (REF) | payer OTHER, SELFPAY ==
[2024-03-05 11:00] LABS: MANUAL DIFF FLAG NO
[2024-03-05 11:25] LABS: Basophils Absolute Auto 0.1 X10*3/uL (0.0-0.2); Basophils Percent Auto 1.3 % (0-2); Eosinophils Absolute Auto 0.3 X10*3/uL (0.0-0.4); Eosinophils Percent Auto 4.3 % (0-4); Hematocrit 48.6 % (37.0-47.0); Hemoglobin 16.1 g/dl (12.0-16.0); Imm Gran Abs Auto 0.01 X10*3/uL (0.00-0.03); Imm Gran Pct Auto 0.1 % (0.0-0.4); Lymphocytes Absolute Auto 2.7 X10*3/uL (1.2-4.9); Lymphocytes Percent Auto 39.9 % (20-40); Mean Corpuscular HGB Conc 33.1 g/dl (31.0-35.0); Mean Corpuscular Hemoglobin 31.8 pg (27.0-33.0); Monocytes Absolute Auto 0.8 X10*3/uL (0.1-1.2); Monocytes Percent Auto 11.6 % (2-11); Neutrophils Absolute Auto 2.9 x10*3/uL (2.0-8.3); Neutrophils Percent Auto 42.8 % (45-73); Platelet Count 256 X10*3/uL (160-400); Red Blood Count 5.06 X10*6/uL (4.20-5.50); Red Cell Distribution Width 12.5 % (11.0-16.0); White Blood Count 6.7 X10*3/uL (4.8-10.8)
[2024-03-05 11:27] LABS: Estimated Average Glucose 120 mg/dL; Hemoglobin A1C 160.7335 umol/L; Hemoglobin A1c % 5.8 % (<6.0); Total Hemoglobin (HGBA1C) 4060.4209 umol/L
[2024-03-05 11:48] LABS: Alanine Aminotransferase 20 U/L (0-31); Albumin Level 4.5 g/dL (3.5-5.0); Alkaline Phosphatase 82 U/L (39-117); Anion Gap 10 (12-20); Aspartate Amino Transferase 17 U/L (5-31); Bilirubin Total 0.6 mg/dL (0.0-1.0); Blood Urea Nitrogen 17 mg/dL (9-16); Calcium 9.3 mg/dL (8.4-10.2); Carbon Dioxide 32 mmol/L (22-29); Chloride 103 mmol/L (96-108); Estimated Glomerular Filt Rate > 60; Glucose Fasting 128 mg/dL (60-99); Potassium 4.1 mmol/L (3.3-5.1); Sodium 141 mmol/L (135-145); TSH reflex Free T4 2.45 uIU/mL (0.32-4.0); Total Protein 7.2 g/dL (6.5-8.0)
== END 2024-03-05 08:02 | disposition home or self-care (01) ==
LOC: HO.WFDLDS 08:01
PROVIDERS: Visit Provider Physician Assistant
DX: E78.00 Pure hypercholesterolemia, unspecified (principal); I10 Essential (primary) hypertension; E11.9 Type 2 diabetes mellitus without complications; R73.01 Impaired fasting glucose
CPT/HCPCS: 36415; 80053; 83036; 84443; 85025

== ENCOUNTER 2024-03-07 08:20 | Outpatient (AMB) | payer OTHER, SELFPAY ==
--- NOTE | 2024-03-07 08:26 | MHC.PC.OV ---
Vital Signs 03/07/24 08:35 Height 5 ft 3.23 in Weight 196 lb 4 oz BMI 34.5 BP 128/74 Blood Pressure Location Rt brachial Position Sitting Pulse 79 Pulse Source Pulse Oximeter Pulse Oximetry (%) 96 Oxygen Delivery Method Room Air Intake Visit Reasons: F/U Htn. Intake Note: Follow up. Elevated blood pressure last week. Was put on Valsartan 320mg for a few days, and went back to 160 on Tuesday. Had covid last month. 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 HPI Details The patient is a 58-year-old female who presents today for a follow up. She was recently seen for left shoulder discomfort. This condition began approximately six weeks ago. The patient has a history of frozen shoulder on the contralateral side nearly four years ago. She initially attempted similar exercises to relieve the current symptoms but found them ineffective. The pain is located in the anterior shoulder region, frequently radiating down the arm to the elbow and occasionally extending to the collarbone. The patient describes the pain as sharp at times, with a characteristic aching quality and limited range of motion; there is associated stiffness. She found out that her insurance is not accepted at [facility] and she would like to see a local orthopedic doctor. Endo: Her diabetes is currently well managed with an A1c of 5.8. She is controlled with metformin 500 mg twice a day and Jardiance 10 mg daily. She is hoping to be able to cut back on some of her metformin dosing. CV: Her blood pressure is managed with diltiazem 120 mg, [id number] mg and metoprolol 100 mg. Blood pressure today in the office is WNL. No chest pain, shortness on breath or palpitations. Her last LDL was 107. Goals less than 100. She is on Crestor 5 mg. . [facility] Medical History (Updated 03/07/24 @ 09:13 by Elida Segundo PA-C) Hernia SVT (supraventricular tachycardia) HTN (hypertension) Surgical History H/O section Family History Mother HTN (hypertension) High cholesterol Diabetes Thyroid disorder Father HTN (hypertension) High cholesterol Maternal Aunt No problems noted. Maternal Grandmother Diabetes Social History (Updated 03/07/24 @ 08:38 by Sara Paredes CMA) Housing: House Alcohol intake: current Patient Tobacco Use Status: Former Tobacco user (quit 20 years ago) Cigarette Packs Per Day: 1 Years Smoked: 12 e-Cigarette/Vaping Use: Never Used Second Hand Smoke Exposure: No service: No Current occupational status: employed Current occupation: [employer] Current occupational exposures/hazards: No Cognitive needs: No Hearing needs: No Vision needs: Yes (reading glasses) Questionnaire PHQ-9 Over the last 2 weeks, how often have you been bothered by any of the following problems? 1. Little interest or pleasure in doing things: not at all 2. Feeling down, depressed, or hopeless: not at all 3. Trouble falling or staying asleep, or sleeping too much: not at all 4. Feeling tired or having little energy: not at all 5. Poor appetite or overeating: not at all 6. Feeling bad about yourself - or that you are a failure or have let yourself or your family down: not at all 7. Trouble concentrating on things, such as reading the newspaper or watching television: not at all 8. Moving or speaking so slowly that other people could have noticed. Or the opposite - being so fidgety or restless that you have been moving around a lot more than usual: not at all 9. Thoughts that you would be better off or of hurting yourself in some way: not at all Total score: 0 Depression Screening Interpretation: Negative Depression Screening Done: Yes 41501 - PHQ-9 Billing: Yes Source: Developed by Drs. Venkatesh Yang, Yany Meredith, Campos Castro and colleagues, with an educational jose elias from [employer]. Thrive Questionnaire Date Thrive assessed: 03/07/24 I am a: Patient What is your living situation today?: I have a steady place to live Within the past 12 months, did the food you bought not last and you didn't have the money to get more?: Never true Within the past 12 months, did you worry whether your food would run out before you got money to buy more?: Never true Do you have trouble paying for medicines?: No Do you have trouble getting transportation to medical appointments?: No Do you have trouble paying your heating and electricity bill?: No Do you have trouble taking care of your child, family member or friend?: No Do you have trouble with day-to-day activities such as bathing, preparing meals, shopping, managing finances, etc.?: No Are you currently unemployed and looking for a job?: No Are you interested in more education?: No Please select the resources that you would like help with: None Currently or been in a relationship where the following occur: No concerns reported THRIVE Score: 0 AUDIT C Alcohol Use Questionnaire (AUDIT-C) 1. How often do you have a drink containing alcohol?: 2-3 times a week 2. How many drinks containing alcohol do you have on a typical day when you are drinking?: 1 or 2 3. How often do you have six or more drinks on one occasion?: Never Total Score: 3 ABBIE-7 AMB Questionnaire ABBIE-7 Date ABBIE - 7 assessed: 03/07/24 Feeling nervous, anxious, or on edge: 0 = Not at all Not being able to stop or control worryin = Not at all Worrying too much about different things: 0 = Not at all Trouble relaxin = Not at all Being so restless that it is hard to sit still: 0 = Not at all Becoming easily annoyed or irritable: 0 = Not at all Feeling afraid as if something awful might happen: 0 = Not at all Total ABBIE-7 score (0-4 normal; 5-9 mild; 10-14 moderate; 15-21 severe): 0 Source: Developed by Yany Burris Kurt Kroenke and colleagues, with an educational jose elias from [employer]. ABBIE-7 Assessment Billing ABBIE-7 Assessment Tool: ABBIE-7 Assessment 13178 Physical exam (Primary Care) Vital Signs: Last Vital Signs Pulse 79 03/07/24 08:35 BP 128/74 03/07/24 08:35 Pulse Ox 96 03/07/24 08:35 Oxygen Delivery Method Room Air 03/07/24 08:35 BMI result Body Mass Index 34.5 Tobacco/Smoking Status: Tobacco use Status Tobacco use date assessed 11/02/23 03/07/24 08:26 Patient Tobacco Use Status Former Tobacco user (quit 20 03/07/24 08:38 years ago) e-Cigarette/Vaping Use Never Used 03/07/24 08:38 PHQ-9: PHQ-9 Score PHQ-9: Total score 0 03/07/24 08:52 Depression Screening Interpretation: Negative Thrive Assessment: Date of Thrive Assessment Date Thrive assessed 03/07/24 03/07/24 08:38 Currently or been in a relationship where the following occur: No concerns reported Const Orientation/consciousness: patient oriented x3 HENMT Ears: hearing grossly normal bilaterally Neck Thyroid: Thyroid normal Lymphatic: no lymphadenopathy noted Resp Auscultation: clear to auscultation bilaterally Cardio Rate: regular rate Rhythm: regular rhythm Heart sounds: S1 normal heart sound present and S2 normal heart sound present GI Inspection: Yes normal to inspection Palpation (GI): Soft to palpation and Other GI palpation findings present (nontender, no cva tenderness) Auscultation: normoactive bowel sounds Rectal Exam - Female: deferred Skin General skin exam: no rashes or lesions noted Neuro General: patient oriented x3, gait normal and no focal motor deficits Coding Level of Care Code Est Pt Level 4 (17072) Complex EM visit Add On G2211 Diagnoses Left shoulder pain M25.512 Controlled type 2 diabetes mellitus without complication, without long-term current use of insulin E11.9 Diabetes mellitus complication status: without complication Diabetes mellitus chcf insulin use: without vermin exterminator use Pure hypercholesterolemia E78.00 Hyperlipidemia type: pure hypercholesterolemia Additional Codes ABBIE-7 Assessment Billing - ABBIE-7 Assessment Tool: ABBIE-7 Assessment 60549 ([id number]) PHQ-9 - 90653 - PHQ-9 Billing: Yes ([id number]) Assessment & Plan Assessment & Plan (1) Left shoulder pain: Code(s): M25.512 - Pain in left shoulder Category: Medical Plan: Referral to orthopedics (2) Controlled type 2 diabetes mellitus: Code(s): E11.9 - Type 2 diabetes mellitus without complications Category: Medical Qualifiers: Diabetes mellitus complication status: without complication Diabetes mellitus vermin exterminator insulin use: without vermin exterminator use Qualified Code(s): E11.9 - Type 2 diabetes mellitus without complications Plan: Reduce dose of metformin to 500 mg once a day. Continue with Jardiance. Return in 3 months for follow up. (3) Hyperlipidemia: Code(s): E78.5 - Hyperlipidemia, unspecified Category: Medical Qualifiers: Hyperlipidemia type: pure hypercholesterolemia Qualified Code(s): E78.00 - Pure hypercholesterolemia, unspecified Plan: We will recheck lipids. If not at goal will increase Crestor. Orders: Orders Complete Blood Count Auto Diff Today E11.9 - Type 2 diabetes mellitus without complications, E78.00 - Pure hypercholesterolemia, unspecified, R79.89 - Other specified abnormal findings of blood chemistry Lipid Panel Today E11.9 - Type 2 diabetes mellitus without complications, E78.00 - Pure hypercholesterolemia, unspecified, R79.89 - Other specified abnormal findings of blood chemistry Referrals Orthopedics Referral M25.512 - Pain in left shoulder Medications: New metformin ER 500 mg PO DAILY 90 tabs 2RF diclofenac sodium 50 mg PO Q12H 120 tabs 0RF Discontinued meloxicam Discontinued Reason: Doctor's Order 15 mg PO DAILY 30 tabs 0RF
[2024-03-07 08:35] VITALS: BP 128/74; PULSE 79; O2SAT 96; BMI 34.5
== END 2024-03-07 09:17 | disposition home or self-care (01) ==
PROVIDERS: PCP Physician Assistant; Visit Provider Physician Assistant
DX: M25.512 Pain in left shoulder (principal); E11.9 Type 2 diabetes mellitus without complications; E78.00 Pure hypercholesterolemia, unspecified

== ENCOUNTER → 2024-03-07 08:20 | Outpatient (BNVA) | payer OTHER, SELFPAY | PROVIDERS: Visit Provider Physician Assistant | DX: M25.512 Pain in left shoulder (principal); E11.9 Type 2 diabetes mellitus without complications; E78.5 Hyperlipidemia, unspecified | CPT/HCPCS: 96127; 99212 ==

== ENCOUNTER 2024-04-13 08:38 | Outpatient (AMB) | payer OTHER, SELFPAY ==
--- NOTE | 2024-04-13 08:49 | A.OFFVIS_ITS ---
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 Patient reports ongoing pain for a couple months. She states six weeks ago her pain started to get worse. History of frozen shoulder on the right side nearly four years ago. Patient mentions that her pain is located in the anterior shoulder region, frequently radiating down the arm to the hand and occasionally extending to the neck. The patient describes the pain as sharp at times, with a characteristic aching and limited range of motion with stiffness. She has initially attempted similar exercises to relieve the current symptoms but found them ineffective. She has tried and failed ibuprofen and diclofenac. 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 Brasher is a 58-year-old right-hand dominant female who presents to the office today for evaluation of left shoulder pain and stiffness. The patient does have a past medical history significant for adhesive capsulitis of the right shoulder requiring cortisone injection and physical therapy. Her left shoulder has been bothering her since November of 2023. She has tried and failed anti-inflammatories. [facility] Medical History (Updated 04/13/24 @ 11:00 by Xenia Moran PA-C) Hernia SVT (supraventricular tachycardia) HTN (hypertension) Surgical History H/O section Family History Mother HTN (hypertension) High cholesterol Diabetes Thyroid disorder Father HTN (hypertension) High cholesterol Maternal Aunt No problems noted. Maternal Grandmother Diabetes Social History Housing: House Alcohol intake: current Patient Tobacco Use Status: Former Tobacco user (quit 20 years ago) Cigarette Packs Per Day: 1 Years Smoked: 12 e-Cigarette/Vaping Use: Never Used Second Hand Smoke Exposure: No service: No Current occupational status: employed Current occupation: [employer] Current occupational exposures/hazards: No Cognitive needs: No Hearing needs: No Vision needs: Yes (reading glasses) Review of Systems Const All systems reviewed & are unremarkable except as noted in HPI and below Physical Exam Vital Signs: BMI result Body Mass Index 34.7 Const General: cooperative, healthy appearing and no acute distress Resp Effort & Inspection: normal respiratory effort and able to speak in complete sentences Cardio Rate: regular rate Peripheral pulses: Peripheral pulses 2+ throughout Skin Lesions: no lesions Rashes: no rashes Extrem Other: Right shoulder: Forward flexion and abduction to 45 degrees. Minimal motion with external rotation. Unable to assess empty can or drop arm due to range of motion restrictions. NVI. Office Procedures AMB Joint Injection/Aspiration Joint Injection/Aspiration Primary Site: left shoulder Prep: site was prepped using aseptic technique, ethochloride spray was applied and injection warnings given Injected: 80 mg of, DepoMedrol, with 8 mL of (2% plain lidocaine) and in the subcromial space Approach Used: posterolateral Procedure: The patient tolerated the procedure well, but had some pain with the injection and there was some relief with the local anesthesia Coding 17146 - Large joint Procedure code (CPT) selection complete Assessment & Plan Assessment & Plan (1) Adhesive capsulitis of left shoulder: Code(s): M75.02 - Adhesive capsulitis of left shoulder Category: Medical (2) Diabetes: Code(s): E11.9 - Type 2 diabetes mellitus without complications Category: Medical Plan Ms. Brasher is a 58-year-old right-hand dominant female who presents to the office today for evaluation of left shoulder pain and stiffness. The patient does have a past medical history significant for adhesive capsulitis of the right shoulder requiring cortisone injection and physical therapy. Her left shoulder has been bothering her since November of 2023. She has tried and failed anti-inflammatories. While the office today, we discussed the role of cortisone injection and physical therapy. The patient will attend physical therapy and an order has been placed at this time. The patient was offered a cortisone injection in the left shoulder with 80 mg of DepoMedrol. The patient was explained the risks, benefits, and alternatives to receiving this injection. After receiving consent for the injection, the patient had the procedure done while in the office today. The patient tolerated the procedure well with no complications. Last A1c was 5.8 for this patient and due to the severity of the patient's symptoms 80 mg of Depo-Medrol was used. Due to the patient?s history of diabetes, they were instructed to monitor their blood glucose level. The patient was informed that they could see a rise in their numbers and if the numbers became too high, they were instructed to call their PCP. The patient was also informed that they could have facial flushing as a side effect of the injection, but this will pass. Follow-up will be 6 weeks, or sooner if needed X-rays of the left shoulder which were obtained while in the office today and were reviewed by me, Xenia Moran PA-C, revealed negative for any acute fracture or dislocation. There is calcifications laterally to the humeral head. Orders: Orders XR shoulder LT min 2V Today M25.519 - Pain in unspecified shoulder Coding Level of Care Code New Pt Level 4 (45907) Diagnoses Adhesive capsulitis of left shoulder M75.02 Diabetes E11.9 CPT Codes Coding - 52015 Large joint: 87291 - Large joint ([id number])
[2024-04-13 08:55] VITALS: BMI 34.7
--- OUTSIDE RECORDS SUMMARY | 2024-04-13 08:57 | XMS_ITS | Continuity of Care Document ---
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 Medication Details Route Status Patient Instructions Prescription Expires Prescription Number Last Dispense Date Ordering Provider Order Date Order Qty Source AMOXICILLIN -CLAVULANAT E POTASS (amoxicilli n/potassium clavulanate ), 875-125 MG, TABLET, ORAL, [employer],, 20 ea. BOTTLE Active [id number] 4 2023 20 Pharmac y Data Transac tion Service Facilit y CLOTRIMAZOL E-BETAMETHA SONE (CLOTRIMAZO LE/BETAMET DIPROP), 1-0.05%, CREAM(GM), TOPICAL, FOUGERA, 15 g TUBE Active [id number] 4 2023 45 Pharmac y Data Transac tion Service Facilit y DILTIAZEM 24HR ER (LA) (diltiazem HCl), 120 MG, TAB ER 24H, ORAL, OCEANSIDE PHARM, 30 ea. BOTTLE Cancele d [id number] : 2023 0 Pharmac y Data Transac tion Service Facilit y DILTIAZEM 24HR ER (LA) (diltiazem HCl), 120 MG, TAB ER 24H, ORAL, OCEANSIDE PHARM, 90 ea. BOTTLE Active [id number] 4 2023 90 Pharmac y Data Transac tion Service Facilit y DILTIAZEM 24HR ER (LA) (diltiazem HCl), 120 MG, TAB ER 24H, ORAL, OCEANSIDE PHARM, 90 ea. BOTTLE Active [id number] 4 2023 90 Pharmac y Data Transac tion Service Facilit y DILTIAZEM 24HR ER (LA) (diltiazem HCl), 120 MG, TAB ER 24H, ORAL, OCEANSIDE PHARM, 90 ea. BOTTLE Active [id number] 4 2023 90 Pharmac y Data Transac tion Service Facilit y DILTIAZEM 24HR ER (LA) (diltiazem HCl), 120 MG, TAB ER 24H, ORAL, OCEANSIDE PHARM, 90 ea. BOTTLE Cancele d [id number] : 2023 0 Pharmac y Data Transac tion Service Facilit y DILTIAZEM 24HR ER (LA) (diltiazem HCl), 120 MG, TAB ER 24H, ORAL, OCEANSIDE PHARM, 90 ea. BOTTLE Active [id number] 4 2023 90 Pharmac y Data Transac tion Service Facilit y ERYTHROMYCI N (ERYTHROMYC IN BASE), 5MG/G, OINT.(GM), OPHTHALMIC, BAUSCH &LOMB RX, 3.5 g TUBE Active [id number] 4 2023 3.5 Pharmac y Data Transac tion Service Facilit y FLUCONAZOLE (FLUCONAZOL E), 150 MG, TABLET, ORAL, [employer] PHARMA L, 12 ea. BLIST PACK Active [id number] 4 2023 3 Pharmac y Data Transac tion Service Facilit y FLUCONAZOLE (FLUCONAZOL E), 150 MG, TABLET, ORAL, '[facility], 12 ea. BLIST PACK Active [id number] 4 2023 3 Pharmac y Data Transac tion Service Facilit y METFORMIN HCL (METFORMIN HCL), 500MG, TABLET, ORAL, AUROBINDO PHARM, 100 ea. BOTTLE Active [id number] 4 2023 60 Pharmac y Data Transac tion Service Facilit y METFORMIN HCL (METFORMIN HCL), 500MG, TABLET, ORAL, AUROBINDO PHARM, 100 ea. BOTTLE Active [id number] 4 2023 60 Pharmac y Data Transac tion Service Facilit y METFORMIN HCL (METFORMIN HCL), 500MG, TABLET, ORAL, AUROBINDO PHARM, 100 ea. BOTTLE Cancele d [id number] : 2023 0 Pharmac y Data Transac tion Service Facilit y METRONIDAZO LE (METRONIDAZ OLE), 500 MG, TABLET, ORAL, [facility], 100 ea. BOTTLE Active [id number] 4 2023 14 Pharmac y Data Transac tion Service Facilit y VALSARTAN (VALSARTAN) , 160 MG, TABLET, ORAL, [facility] 90 ea. BOTTLE Active [id number] 4 2023 90 Pharmac y Data Transac tion Service Facilit y VALSARTAN (VALSARTAN) , 160 MG, TABLET, ORAL, [facility] 90 ea. BOTTLE Active [id number] 4 2023 90 Pharmac y Data Transac tion Service Facilit y Immunizations Combined list of available immunizations from the Department of Defense and Veterans Affairs facilities. Immunization Series Date Given Administered By Site Reaction Lot Number CVX Code Drug Bearing Maker Status Comments Source COVID-19, mRNA, LNP-S, PF, [...] facilities. Social History Type Response Date Comment Sour e This section is an empty social history section. [facility]
== END 2024-04-13 09:20 | disposition home or self-care (01) ==
PROVIDERS: PCP Physician Assistant; Visit Provider Physician Assistant
DX: M75.02 Adhesive capsulitis of left shoulder (principal); E11.9 Type 2 diabetes mellitus without complications
CPT/HCPCS: 20610; 99204

== ENCOUNTER → 2024-04-13 08:39 | Outpatient (BNV) | payer OTHER, SELFPAY | PROVIDERS: Visit Provider Radiology Diagnostic Radiology | DX: M25.512 Pain in left shoulder (principal) | CPT/HCPCS: 73030 ==

== ENCOUNTER 2024-04-13 09:26 | Outpatient (REF) | payer OTHER, SELFPAY ==
--- NOTE | ~2024-04-13 | XR_ITS ---
EXAMINATION: XR SHOULDER, LEFT CLINICAL INFORMATION: M25.519 - Pain in unspecified shoulder COMPARISON: None available. TECHNIQUE: AP external rotation, Grashey, scapular Y, and axillary views of the left shoulder. FINDINGS: Normal bone mineralization. No fracture, dislocation, or suspicious bone lesion. Normal alignment. The glenohumeral joint is intact and normal in appearance. There is mild spurring of the AC joint predominantly superiorly. There is a neutral lateral acromion. No undersurface spurring. The subacromial space is preserved. Soft tissues demonstrate mild calcific deposition in the subscapularis tendon and infraspinatus tendon. XR/XR shoulder LT min 2V IMPRESSION: 1. Mild calcific tendinopathy of the infraspinatus and subscapularis tendons. 2. No acute bony abnormalities left shoulder. Electronically signed by: Chinmay Story MD 04/13/2024 10:23 AM [facility]
--- OUTSIDE RECORDS SUMMARY | 2024-04-17 10:30 | XMS_ITS | Continuity of Care Document ---
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 Medication Details Route Status Patient Instructions Prescription Expires Prescription Number Last Dispense Date Ordering Provider Order Date Order Qty Source AMOXICILLIN -CLAVULANAT E POTASS (amoxicilli n/potassium clavulanate ), 875-125 MG, TABLET, ORAL, eFolder,, 20 ea. BOTTLE Active [id number] 4 2023 20 Pharmac y Data Transac tion Service Facilit y CLOTRIMAZOL E-BETAMETHA SONE (CLOTRIMAZO LE/BETAMET DIPROP), 1-0.05%, CREAM(GM), TOPICAL, FOUGERA, 15 g TUBE Active [id number] 4 2023 45 Pharmac y Data Transac tion Service Facilit y DILTIAZEM 24HR ER (LA) (diltiazem HCl), 120 MG, TAB ER 24H, ORAL, OCEANSIDE PHARM, 30 ea. BOTTLE Cancele d [id number] : 2023 0 Pharmac y Data Transac tion Service Facilit y DILTIAZEM 24HR ER (LA) (diltiazem HCl), 120 MG, TAB ER 24H, ORAL, OCEANSIDE PHARM, 90 ea. BOTTLE Active [id number] 4 2023 90 Pharmac y Data Transac tion Service Facilit y DILTIAZEM 24HR ER (LA) (diltiazem HCl), 120 MG, TAB ER 24H, ORAL, OCEANSIDE PHARM, 90 ea. BOTTLE Active [id number] 4 2023 90 Pharmac y Data Transac tion Service Facilit y DILTIAZEM 24HR ER (LA) (diltiazem HCl), 120 MG, TAB ER 24H, ORAL, OCEANSIDE PHARM, 90 ea. BOTTLE Active [id number] 4 2023 90 Pharmac y Data Transac tion Service Facilit y DILTIAZEM 24HR ER (LA) (diltiazem HCl), 120 MG, TAB ER 24H, ORAL, OCEANSIDE PHARM, 90 ea. BOTTLE Cancele d [id number] : 2023 0 Pharmac y Data Transac tion Service Facilit y DILTIAZEM 24HR ER (LA) (diltiazem HCl), 120 MG, TAB ER 24H, ORAL, OCEANSIDE PHARM, 90 ea. BOTTLE Active [id number] 4 2023 90 Pharmac y Data Transac tion Service Facilit y ERYTHROMYCI N (ERYTHROMYC IN BASE), 5MG/G, OINT.(GM), OPHTHALMIC, BAUSCH &LOMB RX, 3.5 g TUBE Active [id number] 2023 3.5 Pharmac y Data Transac tion Service Facilit y FLUCONAZOLE (FLUCONAZOL E), 150 MG, TABLET, ORAL, [facility] PHARMA L, 12 ea. BLIST PACK Active [id number] 4 2023 3 Pharmac y Data Transac tion Service Facilit y FLUCONAZOLE (FLUCONAZOL E), 150 MG, TABLET, ORAL, '[facility], 12 ea. BLIST PACK Active [id number] 2023 3 Pharmac y Data Transac tion Service Facilit y METFORMIN HCL (METFORMIN HCL), 500MG, TABLET, ORAL, AUROBINDO PHARM, 100 ea. BOTTLE Active [id number] 4 2023 60 Pharmac y Data Transac tion Service Facilit y METFORMIN HCL (METFORMIN HCL), 500MG, TABLET, ORAL, AUROBINDO PHARM, 100 ea. BOTTLE Active [id number] 4 2023 60 Pharmac y Data Transac tion Service Facilit y METFORMIN HCL (METFORMIN HCL), 500MG, TABLET, ORAL, AUROBINDO PHARM, 100 ea. BOTTLE Cancele d [id number] : 2023 0 Pharmac y Data Transac tion Service Facilit y METRONIDAZO LE (METRONIDAZ OLE), 500 MG, TABLET, ORAL, [facility], 100 ea. BOTTLE Active [id number] 4 2023 14 Pharmac y Data Transac tion Service Facilit y VALSARTAN (VALSARTAN) , 160 MG, TABLET, ORAL, [facility] 90 ea. BOTTLE Active [id number] 4 2023 90 Pharmac y Data Transac tion Service Facilit y VALSARTAN (VALSARTAN) , 160 MG, TABLET, ORAL, [facility] 90 ea. BOTTLE Active [id number] 4 2023 90 Pharmac y Data Transac tion Service Facilit y Immunizations Combined list of available immunizations from the Department of Defense and Veterans Affairs facilities. 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
== END 2024-04-13 09:27 | disposition home or self-care (01) ==
LOC: HO.HOSX 09:26
PROVIDERS: Visit Provider Physician Assistant
DX: M25.512 Pain in left shoulder (principal); M75.02 Adhesive capsulitis of left shoulder; E11.9 Type 2 diabetes mellitus without complications
CPT/HCPCS: 20610; 73030; 99202; J1010; J2003

== ENCOUNTER 2024-05-25 09:17 | Outpatient (AMB) | payer OTHER, SELFPAY ==
--- NOTE | 2024-05-25 09:19 | MHC.OFFVIS ---
Vital Signs 05/25/24 09:24 Height 5 ft 3 in Weight 196 lb BMI 34.7 Handedness Right Intake Visit Reasons: OV- Left shoulder pain Intake Note: Pam is a 58 year old right hand dominant female who presents today for a follow up of her left shoulder adhesive capsulitis, last injection 04/13/24. Patient reports she is feeling better today but she still feels some pain in her shoulder at times. She hasn't heard from PT, however she has been performs small exercises at home. Allergies acetaminophen [From Vicodin] Allergy (Mild, Verified 05/25/24 09:24) Nausea hydrocodone [From Vicodin] Allergy (Mild, Verified 05/25/24 09:24) Nausea HPI HPI OV- Left shoulder pain: Details: Patient is a 58-year-old wrtke-jppq-zkztlylz female who presents the office today for follow-up of left shoulder adhesive capsulitis. She was last seen in the office on 04/13/2024 for an injection was given. She reports that this gave her a great deal of relief and some increase in range of motion. She has not attended any physical therapy since the last appointment. She reports that her primary care provider gave her 50 mg of diclofenac q.12 hours which does assist with pain. [facility] Medical History (Updated 04/13/24 @ 11:00 by Xenia Moran PA-C) Hernia SVT (supraventricular tachycardia) HTN (hypertension) Surgical History H/O section Family History Mother HTN (hypertension) High cholesterol Diabetes Thyroid disorder Father HTN (hypertension) High cholesterol Maternal Aunt No problems noted. Maternal Grandmother Diabetes Social History Housing: House Alcohol intake: current Patient Tobacco Use Status: Former Tobacco user (quit 20 years ago) Cigarette Packs Per Day: 1 Years Smoked: 12 e-Cigarette/Vaping Use: Never Used Second Hand Smoke Exposure: No service: No Current occupational status: employed Current occupation: [employer] Current occupational exposures/hazards: No Cognitive needs: No Hearing needs: No Vision needs: Yes (reading glasses) Review of Systems Const All systems reviewed & are unremarkable except as noted in HPI and below Physical Exam Const General: cooperative, healthy appearing and no acute distress Resp Effort & Inspection: normal respiratory effort and able to speak in complete sentences Cardio Rate: regular rate Peripheral pulses: Peripheral pulses 2+ throughout Skin Lesions: no lesions Rashes: no rashes Extrem Other: Right shoulder: Forward flexion and abduction to 45 degrees. Minimal motion with external rotation. Unable to assess empty can or drop arm due to range of motion restrictions. NVI. Assessment & Plan Assessment & Plan (1) Adhesive capsulitis of left shoulder: Code(s): M75.02 - Adhesive capsulitis of left shoulder Category: Medical Plan Patient is a 58-year-old igfgl-aglr-ythkjvjh female who presents the office today for follow-up of left shoulder adhesive capsulitis. She was last seen in the office on 04/13/2024 for an injection was given. She reports that this gave her a great deal of relief and some increase in range of motion. She has not attended any physical therapy since the last appointment. She reports that her primary care provider gave her 50 mg of diclofenac q.12 hours which does assist with pain she is looking for refill while in the office today. Phone the office today, I discussed that it is too soon for repeat cortisone injection in the left shoulder. I stressed the importance of physical therapy in the setting of adhesive capsulitis and that this should be the main treatment plan at this time. I have placed a new order for physical therapy. She will follow-up at the three-month diony from her last injection for a repeat as this is what she finds most beneficial. I have also sent a refill for diclofenac 50 mg q.12 hours to the pharmacy. She will follow-up in 6 weeks after physical therapy, sooner if needed. Orders: Orders PT Evaluation and Treatment Today M75.02 - Adhesive capsulitis of left shoulder Medications: New diclofenac sodium 50 mg PO Q12H 30 days PRN 60 tabs 3RF pain Coding Level of Care Code Est Pt Level 3 (35463) Diagnoses Adhesive capsulitis of left shoulder M75.02
[2024-05-25 09:24] VITALS: BMI 34.7
== END 2024-05-25 09:32 | disposition home or self-care (01) ==
LOC: HO.HOS 09:18
PROVIDERS: PCP Physician Assistant; Visit Provider Physician Assistant
DX: M75.02 Adhesive capsulitis of left shoulder (principal)
CPT/HCPCS: 99213

== ENCOUNTER → 2024-05-25 09:17 | Outpatient (BNVA) | payer OTHER, SELFPAY | PROVIDERS: PCP Physician Assistant; Visit Provider Physician Assistant | DX: M75.02 Adhesive capsulitis of left shoulder (principal) | CPT/HCPCS: 99212 ==

== ENCOUNTER 2024-06-01 07:29 | Outpatient (REF) | payer OTHER, SELFPAY ==
[2024-06-01 11:38] LABS: MANUAL DIFF FLAG NO
[2024-06-01 11:40] LABS: Basophils Absolute Auto 0.1 X10*3/uL (0.0-0.2); Basophils Percent Auto 1.4 % (0-2); Eosinophils Absolute Auto 0.2 X10*3/uL (0.0-0.4); Eosinophils Percent Auto 3.4 % (0-4); Hematocrit 47.2 % (37.0-47.0); Hemoglobin 15.5 g/dl (12.0-16.0); Imm Gran Abs Auto 0.01 X10*3/uL (0.00-0.03); Imm Gran Pct Auto 0.2 % (0.0-0.4); Lymphocytes Absolute Auto 1.8 X10*3/uL (1.2-4.9); Lymphocytes Percent Auto 41.6 % (20-40); Mean Corpuscular HGB Conc 32.8 g/dl (31.0-35.0); Mean Corpuscular Hemoglobin 32.4 pg (27.0-33.0); Mean Corpuscular Volume 98.7 fL (80.0-98.0); Mean Platelet Volume 9.9 fL (9.4-12.3); Monocytes Absolute Auto 0.4 X10*3/uL (0.1-1.2); Monocytes Percent Auto 9.3 % (2-11); Neutrophils Absolute Auto 1.9 x10*3/uL (2.0-8.3); Neutrophils Percent Auto 44.1 % (45-73); Platelet Count 243 X10*3/uL (160-400); Red Blood Count 4.78 X10*6/uL (4.20-5.50); Red Cell Distribution Width 12.7 % (11.0-16.0); White Blood Count 4.4 X10*3/uL (4.8-10.8)
[2024-06-01 11:55] LABS: Cholesterol 213 mg/dL (<200); HDL Cholesterol 62 mg/dL (>40); LDL Cholesterol Calculated 135 mg/dL (<100); Triglycerides 81 mg/dL (<150)
[2024-06-01 11:59] LABS: Estimated Average Glucose 123 mg/dL; Hemoglobin A1C 165.9356 umol/L; Hemoglobin A1c % 5.9 % (<6.0); Total Hemoglobin (HGBA1C) 4095.0099 umol/L
== END 2024-06-01 07:30 | disposition home or self-care (01) ==
LOC: HO.WFDLDS 07:29
PROVIDERS: Visit Provider Physician Assistant
DX: R73.01 Impaired fasting glucose (principal); E78.00 Pure hypercholesterolemia, unspecified; R79.89 Other specified abnormal findings of blood chemistry; E11.9 Type 2 diabetes mellitus without complications
CPT/HCPCS: 36415; 80061; 83036; 85025

== ENCOUNTER 2024-06-06 08:11 | Outpatient (AMB) | payer OTHER, SELFPAY ==
--- NOTE | 2024-06-06 08:28 | MHC.PC.OV ---
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 Allergies acetaminophen [From Vicodin] Allergy (Mild, Verified 06/06/24 08:29) Nausea hydrocodone [From Vicodin] Allergy (Mild, Verified 06/06/24 08:29) Nausea Medication List - Last Reconciled 06/06/24 by Elida Segundo PA-C diclofenac sodium 50 mg PO Q12H PRN 30 days diltiazem HCl ER 120 mg PO DAILY empagliflozin (Jardiance) 10 mg PO DAILY fluticasone propionate 110 mcg/actuation 1 puff inhalation BID metoprolol succinate ER 100 mg PO DAILY rosuvastatin 5 mg PO DAILY valsartan 160 mg PO DAILY Tobacco use date assessed: 06/06/24 Dental Screening Dental Screen Date: 11/02/23 HPI dm HPI Details The patient is a 58-year-old female who presents today for a follow up. Musculoskeletal: She was recently seen for left shoulder discomfort. She is following with ortho and starting physical therapy on Tuesday. Does have some relief with the diclofenac. Endo: Her diabetes is currently well managed with an A1c of 5.9. She is controlled with metformin 500 mg daily and Jardiance 10 mg daily. She is hoping to be able to cut back on some of her metformin dosing. -never tried anything else. CV: Her blood pressure is managed with diltiazem 120 mg, [id number] mg and metoprolol 100 mg. Blood pressure today in the office is WNL. No chest pain, shortness on breath or palpitations. Her last LDL was 107. Goals less than 100. She is on Crestor 5 mg. Colonoscopy: scheduled in June -overdue Bone density: this was ordered, not booked by pt yet Mammo: this was ordered, not booked by pt yet Pap: She is going to call [facility] Medical History Hernia SVT (supraventricular tachycardia) HTN (hypertension) Surgical History H/O section Family History Mother HTN (hypertension) High cholesterol Diabetes Thyroid disorder Father HTN (hypertension) High cholesterol Maternal Aunt No problems noted. Maternal Grandmother Diabetes Social History Housing: House Alcohol intake: current Patient Tobacco Use Status: Former Tobacco user (quit 20 years ago) Cigarette Packs Per Day: 1 Years Smoked: 12 e-Cigarette/Vaping Use: Never Used Second Hand Smoke Exposure: No service: No Current occupational status: employed Current occupation: [employer] Current occupational exposures/hazards: No Cognitive needs: No Hearing needs: No Vision needs: Yes (reading glasses) Questionnaire Thrive Questionnaire Date Thrive assessed: 03/07/24 I am a: Patient What is your living situation today?: I have a steady place to live Within the past 12 months, did the food you bought not last and you didn't have the money to get more?: Never true Within the past 12 months, did you worry whether your food would run out before you got money to buy more?: Never true Do you have trouble paying for medicines?: No Do you have trouble getting transportation to medical appointments?: No Do you have trouble paying your heating and electricity bill?: No Do you have trouble taking care of your child, family member or friend?: No Do you have trouble with day-to-day activities such as bathing, preparing meals, shopping, managing finances, etc.?: No Are you currently unemployed and looking for a job?: No Are you interested in more education?: No Please select the resources that you would like help with: None Currently or been in a relationship where the following occur: No concerns reported THRIVE Score: 0 AUDIT C Alcohol Use Questionnaire (AUDIT-C) 1. How often do you have a drink containing alcohol?: 2-3 times a week 2. How many drinks containing alcohol do you have on a typical day when you are drinking?: 1 or 2 3. How often do you have six or more drinks on one occasion?: Never Total Score: 3 ABBIE-7 AMB Questionnaire ABBIE-7 Date ABBIE - 7 assessed: 03/07/24 Source: Developed by Drs. Venkatesh Yang, Yany B.Campos Butt and colleagues, with an educational jose elias from [employer]. Physical exam (Primary Care) Vital Signs: Last Vital Signs Pulse 76 06/06/24 08:30 Resp 14 06/06/24 08:30 BP 114/76 06/06/24 08:30 Pulse Ox 97 06/06/24 08:30 Oxygen Delivery Method Room Air 06/06/24 08:30 BMI result Body Mass Index 34.9 Tobacco/Smoking Status: Tobacco use Status Tobacco use date assessed 06/06/24 06/06/24 08:35 Patient Tobacco Use Status Former Tobacco user (quit 20 06/06/24 08:36 years ago) e-Cigarette/Vaping Use Never Used 06/06/24 08:36 Thrive Assessment: Date of Thrive Assessment Date Thrive assessed 03/07/24 06/06/24 08:28 Currently or been in a relationship where the following occur: No concerns reported Const Orientation/consciousness: patient oriented x3 HENMT Ears: hearing grossly normal bilaterally Neck Thyroid: Thyroid normal Lymphatic: no lymphadenopathy noted Resp Auscultation: clear to auscultation bilaterally Cardio Rate: regular rate Rhythm: regular rhythm Heart sounds: S1 normal heart sound present and S2 normal heart sound present GI Inspection: Yes normal to inspection Palpation (GI): Soft to palpation and Other GI palpation findings present (nontender, no cva tenderness) Auscultation: normoactive bowel sounds Rectal Exam - Female: deferred Skin General skin exam: no rashes or lesions noted Neuro General: patient oriented x3, gait normal and no focal motor deficits Results Reviewed Results Reviewed: Laboratory Tests 06/01/24 07:30 Estimat Average Glucose 123 Hemoglobin A1c % 5.9 Coding Level of Care Code Est Pt Level 4 (29304) Complex EM visit Add On G2211 Diagnoses Primary hypertension I10 Hypertension type: primary hypertension Controlled type 2 diabetes mellitus without complication, without long-term current use of insulin E11.9 Diabetes mellitus complication status: without complication Diabetes mellitus senior living insulin use: without ferry terminal agent use Pure hypercholesterolemia E78.00 Hyperlipidemia type: pure hypercholesterolemia Assessment & Plan Assessment & Plan (1) HTN (hypertension): Code(s): I10 - Essential (primary) hypertension Category: Medical Qualifiers: Hypertension type: primary hypertension Qualified Code(s): I10 - Essential (primary) hypertension Plan: WNL. Continue current regimen (2) Controlled type 2 diabetes mellitus: Code(s): E11.9 - Type 2 diabetes mellitus without complications Category: Medical Qualifiers: Diabetes mellitus complication status: without complication Diabetes mellitus senior living insulin use: without senior living use Qualified Code(s): E11.9 - Type 2 diabetes mellitus without complications Plan: We will stop the metformin. We will recheck labs in 3 months. (3) Hyperlipidemia: Code(s): E78.5 - Hyperlipidemia, unspecified Category: Medical Qualifiers: Hyperlipidemia type: pure hypercholesterolemia Qualified Code(s): E78.00 - Pure hypercholesterolemia, unspecified Plan: She has not been very compliant with the Crestor. We will increase compliance and we will recheck lipids Orders: Orders Comprehensive [place]. Panel Fast Today E11.9 - Type 2 diabetes mellitus without complications, E78.00 - Pure hypercholesterolemia, unspecified, I10 - Essential (primary) hypertension Lipid Panel Today E11.9 - Type 2 diabetes mellitus without complications, E78.00 - Pure hypercholesterolemia, unspecified, I10 - Essential (primary) hypertension TSH reflex Free T4 Today E11.9 - Type 2 diabetes mellitus without complications, E78.00 - Pure hypercholesterolemia, unspecified, I10 - Essential (primary) hypertension Hemoglobin A1c Today E11.9 - Type 2 diabetes mellitus without complications, E78.00 - Pure hypercholesterolemia, unspecified, I10 - Essential (primary) hypertension, R73.01 - Impaired fasting glucose Complete Blood Count Auto Diff Today E11.9 - Type 2 diabetes mellitus without complications, E78.00 - Pure hypercholesterolemia, unspecified, I10 - Essential (primary) hypertension Microalbumin, Random (w Creat) Today E11.9 - Type 2 diabetes mellitus without complications, E78.00 - Pure hypercholesterolemia, unspecified, I10 - Essential (primary) hypertension Medications: Discontinued metformin ER Discontinued Reason: Doctor's Order 500 mg PO DAILY 90 tabs 2RF
[2024-06-06 08:30] VITALS: BP 114/76; PULSE 76; RESP 14; O2SAT 97; BMI 34.9
== END 2024-06-06 09:12 | disposition home or self-care (01) ==
LOC: HO.HMCFM 08:12
PROVIDERS: PCP Physician Assistant; Visit Provider Physician Assistant
DX: I10 Essential (primary) hypertension (principal); E11.9 Type 2 diabetes mellitus without complications; E78.00 Pure hypercholesterolemia, unspecified

== ENCOUNTER → 2024-06-06 08:11 | Outpatient (BNVA) | payer OTHER, SELFPAY | PROVIDERS: PCP Physician Assistant; Visit Provider Physician Assistant | DX: E11.9 Type 2 diabetes mellitus without complications (principal); I10 Essential (primary) hypertension; E78.00 Pure hypercholesterolemia, unspecified | CPT/HCPCS: 99212 ==

== ENCOUNTER 2024-07-18 08:52 | Outpatient (AMB) | payer OTHER, SELFPAY ==
--- NOTE | 2024-07-18 09:02 | MHC.OFFVIS ---
Vital Signs 07/18/24 09:03 Height 5 ft 3 in Weight 193 lb BMI 34.2 BP 135/84 Blood Pressure Location Lt brachial Position Sitting Pulse 78 Pulse Oximetry (%) 96 Oxygen Delivery Method Room Air Intake Visit Reasons: Colonoscopy screening Allergies hydrocodone [From Vicodin] Allergy (Mild, Verified 07/18/24 09:02) Nausea HPI HPI Colonoscopy screening: Details: 58-year-old female here for preprocedural meeting to discuss a screening colonoscopy. She is referred by Elida Segundo. PMX History of SVT Diabetes Hypertension High cholesterol Adhesive capsulitis of the shoulder * SURGICAL HISTORY section inguinal hernia repair - left * ALLERGIES HYDROCODONE * [facility] LABS: Laboratory Tests 03/05/24 06/01/24 08:02 07:30 WBC 4.4 L Hgb 15.5 Hct 47.2 H MCV 98.7 H MCH 32.4 Plt Count 243 Estimated GFR > 60 Hemoglobin A1c % 5.9 Total Bilirubin 0.6 AST 17 ALT 20 Alkaline Phosphatase 82 TSH 2.45 TODAY'S VISIT This is her first colonoscopy. She denies any bowel or upper GI problems. No anes or sed problems. She has SVT controlled on medications but no SD and no respiratory problems. No ID problems. She is unsure if her mother had polyps, she has severe diverticulitis and a part of the colon removed from this - I encouaged pt to check on this with her mother. [facility] Medical History (Updated 07/18/24 @ 09:09 by KARRIE Antonio) Diabetes Hernia SVT (supraventricular tachycardia) HTN (hypertension) Surgical History H/O section Family History Mother HTN (hypertension) High cholesterol Diabetes Thyroid disorder Father HTN (hypertension) High cholesterol Maternal Aunt No problems noted. Maternal Grandmother Diabetes Social History Housing: House Alcohol intake: current Patient Tobacco Use Status: Former Tobacco user (quit 20 years ago) Cigarette Packs Per Day: 1 Years Smoked: 12 e-Cigarette/Vaping Use: Never Used Second Hand Smoke Exposure: No service: No Current occupational status: employed Current occupation: [employer] Current occupational exposures/hazards: No Cognitive needs: No Hearing needs: No Vision needs: Yes (reading glasses) Review of Systems Const Denies fatigue, Denies fever(s), Denies night sweats, Denies poor appetite and Denies weight loss Eyes Details: Glasses Reports requires corrective lenses ENT Reports Normal hearing present, Denies dental pain, Denies dysphagia, Denies hearing loss, Denies mouth pain, Denies odynophagia, Denies throat swelling, Denies tongue swelling and Reports other (Dentition adequate) Card Reports no additional complaints Resp Reports no additional complaints GI Details: Denies abdominal pain, Denies melena, Denies bloating, Denies hematochezia, Denies constipation, Denies GI cramping, Denies dysphagia, Denies excessive flatus, Denies early satiety, Denies heartburn, Denies diarrhea, Denies nausea, Denies odynophagia, Denies vomiting and Denies hematemesis Skin/Breast Denies pruritus, Denies lesions, Denies rash and Denies jaundice Neuro Reports Normal hearing present and Denies Abnormal speech present Endo Denies fatigue Aller/Immun Denies throat swelling and Denies tongue swelling Physical Exam Vital Signs: Last Vital Signs Pulse 78 07/18/24 09:03 BP 135/84 07/18/24 09:03 Pulse Ox 96 07/18/24 09:03 Oxygen Delivery Method Room Air 07/18/24 09:03 BMI result Body Mass Index 34.2 Const General: cooperative, no acute distress, well developed and well groomed Nutritional Appearance: well nourished and obese Orientation/consciousness: oriented to person, oriented to place and oriented to time Limitations: No language barrier HEENT Head: Yes normocephalic and Yes atraumatic Eyes General: appearance normal, both eyes and all related structures Pupils: Equal, round and reactive pupils present Neck Neck: Yes normal visual inspection and Yes no lymphadenopathy Thyroid: Thyroid normal Resp Effort & Inspection: normal respiratory effort and able to speak in complete sentences Auscultation: clear to auscultation bilaterally Cardio Rate: regular rate Rhythm: regular rhythm Heart sounds: Normal, physiologic split S2 sound present Peripheral pulses: radial pulses present and posterior tibial pulses present GI Inspection: No distended, Yes Abdominal panniculus present, Yes obesity and Yes striae Palpation (GI): Soft to palpation, nontender, no guarding, not rigid and No hepatosplenomegaly present Percussion: Yes normal to percussion Auscultation: normal bowel sounds Rectal Exam - Female: deferred Abdomen image: 1. surgical scar Skin General skin exam: no rashes or lesions noted, turgor normal, skin not dry, no jaundice, No spider nevi and no striae Rashes: no rashes Nails: normal Neuro General: oriented to person, oriented to place and oriented to time Cranial nerves: Yes Equal, round and reactive pupils present and Yes Normal hearing present Speech: No Abnormal speech present Extrem General: Yes normal to inspection, No clubbing, No cyanosis and No edema Psych Appearance: grossly normal and well kempt Mental Status: mental status grossly normal Speech and movement: Normal speech and movement present Affect: normal affect Attitude: cooperative Thought process: Normal thought process present and not confabulating Thought content: Normal thought content present Insight: Good insight present (Psych) Judgement: Good judgement present (Psych) Assessment & Plan Assessment & Plan (1) Pre-op examination: Code(s): Z01.818 - Encounter for other preprocedural examination Category: Medical (2) Paroxysmal SVT (supraventricular tachycardia): Code(s): I47.10 - Supraventricular tachycardia, unspecified Category: Medical Plan This is her first colonoscopy. She denies any bowel or upper GI problems. No anes or sed problems. She has SVT controlled on medications but no SD and no respiratory problems. No ID problems. She is unsure if her mother had polyps, she has severe diverticulitis and a part of the colon removed from this - I encouaged pt to check on this with her mother. Orders: Orders Colonoscopy - GI Use Only Today Z01.818 - Encounter for other preprocedural examination Medications: New peg 3350-electrolytes 236-22.74-6.74 -5.86 gram (Golytely) until fecal effluent is clear; do not exceed a total volume of 2,000 mL 240 mL PO Q10M 4,000 mL 0RF 1 day Z12.11 - Encounter for screening for malignant neoplasm of colon bisacodyl (Dulcolax (bisacodyl)) 10 mg (2 x 5 mg) PO BEDTIME 4 tabs 0RF 2 days Coding Level of Care Code New Pt Level 3 (41557) Diagnoses Pre-op examination Z01.818 Paroxysmal SVT (supraventricular tachycardia) I47.10
[2024-07-18 09:03] VITALS: BP 135/84; PULSE 78; O2SAT 96; BMI 34.2
--- OUTSIDE RECORDS SUMMARY | 2024-07-18 09:15 | XMS_ITS | Continuity of Care Document ---
Author Name [facility] Organization [facility] Care Team Providers Care Clinical Coder Name Role Phone [facility] Unavailable Unavailable Medications Combined list of outpatient medications from Department of Defense and Veterans Affairs facilities.Medications provided include 1) outpatient medications from the last 15 months, and 2) patient-reported medications. Medication Details Route Status Patient Instructions Prescription Expires Prescription Number Last Dispense Date Ordering Provider Order Date Order Qty Source AMOXICILLIN -CLAVULANAT E POTASS (amoxicilli n/potassium clavulanate ), 875-125 MG, TABLET, ORAL, [employer],, 20 ea. BOTTLE Active [id number] 4 2023 20 Pharmac y Data Transac tion Service Facilit y ERYTHROMYCI N (ERYTHROMYC IN BASE), 5MG/G, OINT.(GM), OPHTHALMIC, BAUSCH &LOMB RX, 3.5 g TUBE Active [id number] 4 2023 3.5 Pharmac y Data Transac tion Service Facilit y METFORMIN HCL (METFORMIN HCL), 500MG, TABLET, ORAL, AUROB[employer]O [employer]ARM, 100 ea. BOTTLE Active [id number] 4 2023 60 Pharmac y Data Transac tion Service Facilit y METFORMIN HCL (METFORMIN HCL), 500MG, TABLET, ORAL, AUROB[employer]O PHARM, 100 ea. BOTTLE Active [id number] 4 2023 60 Pharmac y Data Transac tion Service Facilit y METFORMIN HCL (METFORMIN HCL), 500MG, TABLET, ORAL, AUROBINDO PHARM, 100 ea. BOTTLE Cancele d [id number] : 2023 0 Pharmac y Data Transac tion Service Facilit y Immunizations Combined list of available immunizations from the Department of Defense and Veterans Affairs facilities. Immunization Series Date Given Administered By Site Reaction Lot Number CVX Code Drug Events Intern Status Comments Source COVID-19, mRNA, LNP-S, PF, [...] Influenza, injectable, MDCK, preservative free, quadrivalent 2018 EMYER, () Not Given Influenza , injectabl e, MDCK, preservat indira free, quadrival ent DoD Social History Combined list of available smoking, tobacco, and other social history from Department of Defense and Veterans Affairs facilities. Social History Type Response Date Comment [facility] e This section is an empty social history section. DoD
== END 2024-07-18 09:35 | disposition home or self-care (01) ==
LOC: HO.HGI 08:53
PROVIDERS: PCP Physician Assistant; Visit Provider Nurse Practitioner
DX: Z01.818 Encounter for other preprocedural examination (principal); Z12.11 Encounter for screening for malignant neoplasm of colon; I47.10 Supraventricular tachycardia, unspecified
CPT/HCPCS: S0285

== ENCOUNTER → 2024-07-18 08:52 | Outpatient (BNVA) | payer OTHER, SELFPAY | PROVIDERS: PCP Physician Assistant; Visit Provider Nurse Practitioner | DX: Z13.89 Encounter for screening for other disorder (principal) ==

== ENCOUNTER 2024-07-20 09:03 | Outpatient (AMB) | payer OTHER, SELFPAY ==
--- OUTSIDE RECORDS SUMMARY | 2024-07-20 09:11 | XMS_ITS | Continuity of Care Document ---
Author Name [facility] Organization [facility] Care Team Providers Care Button Spindler Name Role Phone [facility] Unavailable Unavailable Medications Combined list of outpatient medications from Department of Defense and Veterans Affairs facilities.Medications provided include 1) outpatient medications from the last 15 months, and 2) patient-reported medications. Medication Details Route Status Patient Instructions Prescription Expires Prescription Number Last Dispense Date Ordering Provider Order Date Order Qty Source AMOXICILLIN -CLAVULANAT E POTASS (amoxicilli n/potassium clavulanate ), 875-125 MG, TABLET, ORAL, [employer],, 20 ea. BOTTLE Active [id number] 4 2023 20 Pharmac y Data Transac tion Service Facilit y ERYTHROMYCI N (ERYTHROMYC IN BASE), 5MG/G, OINT.(GM), OPHTHALMIC, BAUSCH &LOMB RX, 3.5 g TUBE Active [id number] 4 2023 3.5 Pharmac y Data Transac tion Service Facilit y METFORMIN HCL (METFORMIN HCL), 500MG, TABLET, ORAL, AUROBINDO PHARM, 100 ea. BOTTLE Active [id number] 4 2023 60 Pharmac y Data Transac tion Service Facilit y METFORMIN HCL (METFORMIN HCL), 500MG, TABLET, ORAL, AUROBINDO PHARM, 100 ea. BOTTLE Active [id number] 4 2023 60 Pharmac y Data Transac tion Service Facilit y METFORMIN HCL (METFORMIN HCL), 500MG, TABLET, ORAL, AUROBINDO PHARM, 100 ea. BOTTLE Cancele d [id number] : 2023 0 Pharmac y Data Transac tion Service Facilit y Immunizations Combined list of available immunizations from the Department of Defense and Veterans Affairs facilities. Immunization Series Date Given Administered By Site Reaction Lot Number CVX Code Drug Furnace Operator Status Comments Source COVID-19, mRNA, LNP-S, PF, [...] facilities. Social History Type Response Date Comment [facility] e This section is an empty social history section. DoD
--- NOTE | 2024-07-20 09:30 | MHC.OFFVIS ---
Intake Visit Reasons: OV- Left shoulder pain, last inj 04/13/24 Intake Note: Pam is a 58 year old right hand dominant female who presents today for a follow up of her left shoulder adhesive capsulitis, last injection 04/13/24. At her last visit patient was referred to physical therapy. Patient mentions that physical therapy has helped her ROM and the injection gave her about 3 weeks of relief. Patient is thinking of getting an MRI. Allergies hydrocodone [From Vicodin] Allergy (Mild, Verified 07/20/24 09:39) Nausea HPI HPI OV- Left shoulder pain, last inj 04/13/24: Details: Ms. Brasher is a 58-year-old right-hand dominant female who presents to the office today for chronic left shoulder pain. She last received a cortisone injection on 04/13/2024 in which she states gave her a couple of weeks of relief but did help to increase motion. Additionally, she has been attending physical therapy for adhesive capsulitis and has noticed mild relief. Patient is extremely frustrated that this is taking longer than expected to recover from. [facility] Medical History (Updated 07/18/24 @ 09:09 by KARRIE Antonio) Diabetes Hernia SVT (supraventricular tachycardia) HTN (hypertension) Surgical History (Updated 07/18/24 @ 09:55 by KARRIE Antonio) H/O inguinal hernia repair H/O section Family History Mother HTN (hypertension) High cholesterol Diabetes Thyroid disorder Father HTN (hypertension) High cholesterol Maternal Aunt No problems noted. Maternal Grandmother Diabetes Social History Housing: House Alcohol intake: current Patient Tobacco Use Status: Former Tobacco user (quit 20 years ago) Cigarette Packs Per Day: 1 Years Smoked: 12 e-Cigarette/Vaping Use: Never Used Second Hand Smoke Exposure: No service: No Current occupational status: employed Current occupation: [employer] Current occupational exposures/hazards: No Cognitive needs: No Hearing needs: No Vision needs: Yes (reading glasses) Review of Systems Const All systems reviewed & are unremarkable except as noted in HPI and below Physical Exam Const General: cooperative, healthy appearing and no acute distress Resp Effort & Inspection: normal respiratory effort and able to speak in complete sentences Cardio Rate: regular rate Peripheral pulses: Peripheral pulses 2+ throughout Skin Lesions: no lesions Rashes: no rashes Extrem Other: Right shoulder: Forward flexion to 60 degrees. Abduction to 45 degrees. Very minimal motion with external rotation. Unable to assess empty can or drop arm due to range of motion restrictions. NVI. Office Procedures AMB Joint Injection/Aspiration Joint Injection/Aspiration Primary Site: left shoulder Prep: site was prepped using aseptic technique, ethochloride spray was applied and injection warnings given Injected: 80 mg of, DepoMedrol and with 8 mL of (2% plain lidocaine) Approach Used: posterolateral Procedure: The patient tolerated the procedure well, but had some pain with the injection and there was some relief with the local anesthesia Coding 05992 - Large joint Procedure code (CPT) selection complete Assessment & Plan Assessment & Plan (1) Adhesive capsulitis of left shoulder: Code(s): M75.02 - Adhesive capsulitis of left shoulder Category: Medical (2) Controlled type 2 diabetes mellitus: Code(s): E11.9 - Type 2 diabetes mellitus without complications Category: Medical Qualifiers: Diabetes mellitus nursing home insulin use: without nursing home use Diabetes mellitus complication status: without complication Qualified Code(s): E11.9 - Type 2 diabetes mellitus without complications Plan Ms. Brasher is a 58-year-old right-hand dominant female who presents to the office today for chronic left shoulder pain. She last received a cortisone injection on 04/13/2024 in which she states gave her a couple of weeks of relief but did help to increase motion. Additionally, she has been attending physical therapy for adhesive capsulitis and has noticed mild relief. Patient is extremely frustrated that this is taking longer than expected to recover from. While in the office today, I did discuss with the patient the expected recovery course from adhesive capsulitis can take months of rigorous physical therapy and partner ring with cortisone injections. I did discuss with the patient that there may be surgical intervention but is not warranted until around the 1 year diony of symptoms. She reports that her symptoms began in December of 2023. The patient did ask about further imaging. At this time the patient does not have adequate range of motion for surgical intervention and would likely have a very difficult recovery with possibility of failure. Additionally, she reports it is very difficult to sleep at night. I have recommended a topical pain cream which will be sent to a compounding pharmacy. The patient was offered a cortisone injection in the left shoulder with 80 mg of DepoMedrol. The patient was explained the risks, benefits, and alternatives to receiving this injection. After receiving consent for the injection, the patient had the procedure done while in the office today. The patient tolerated the procedure well with no complications. Due to the patient?s history of diabetes, they were instructed to monitor their blood glucose level. The patient was informed that they could see a rise in their numbers and if the numbers became too high, they were instructed to call their PCP. The patient was also informed that they could have facial flushing as a side effect of the injection, but this will pass. Follow-up will be 6 weeks, or sooner if needed Coding Level of Care Code Est Pt Level 4 (58782) Diagnoses Adhesive capsulitis of left shoulder M75.02 Controlled type 2 diabetes mellitus without complication, without long-term current use of insulin E11.9 Diabetes mellitus nursing home insulin use: without nursing home use Diabetes mellitus complication status: without complication CPT Codes Coding - 12203 Large joint: 25192 - Large joint ([id number])
== END 2024-07-20 09:55 | disposition home or self-care (01) ==
LOC: HO.HOS 09:04
PROVIDERS: PCP Physician Assistant; Visit Provider Physician Assistant
DX: M75.02 Adhesive capsulitis of left shoulder (principal); E11.9 Type 2 diabetes mellitus without complications
CPT/HCPCS: 20610; 99214

== ENCOUNTER → 2024-07-20 09:03 | Outpatient (BNVA) | payer OTHER, SELFPAY | PROVIDERS: PCP Physician Assistant; Visit Provider Physician Assistant | DX: M75.02 Adhesive capsulitis of left shoulder (principal); E11.9 Type 2 diabetes mellitus without complications | CPT/HCPCS: 20610; 99212; J1010; J2003 ==

== ENCOUNTER 2024-08-08 07:11 | Outpatient (RCR) | payer OTHER, SELFPAY ==
--- NOTE | 2024-06-08 09:47 | MHC.PT.EP ---
[facility] [place] Office [place] Office [place] Office [address] Melba Marti [address] [phone] F: [phone] F: [phone] F: [phone] F: [phone] Physical Therapy Plan of Care Date of Evaluation: 06/08/24 Date of Surgery: N/A Diagnosis: adhesive capsulitis of left shoulder (RL) Assessment: pt is a 58 y/o female presenting to physical therapy w/ referring diagnosis of adhesive capsulitis. pt does have some radiating symptoms down the arm. Cervical screen completed and (-) for reproduction of arm symptoms. Impairments include pain, decreased range of motion, decreased strength, impaired functional mobility, impaired postural awareness, and altered ambulation mechanics. pt is a good candidate for skilled PT due to age, potential remediation of impairments, typical disease/condition progression and prognosis, comorbidities, and motivation. pt would benefit from skilled PT intervention to provide a tailored strengthening and stretching exercise program, functional training, gait training, postural re-training, neuromuscular re-education, modalities as needed for pain, equipment safety demonstration. Frequency and Duration: The patient will be seen 2x/wk for 3 weeks, 1x/wk for 4 weeks Short Term Goals: pt will be I w/ HEP to promote self-management of condition. pt will improve L shoulder flexion by at least 15* to promote ease in forward reaching. 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 pt will report a statistically significant improvement in self-reported outcome measure, SPADI, to promote return to PLOF. Treatment Plan: Modalities to reduce pain, spasms and effusion. Manual therapy to restore motion and function. Therapeutic exercise to improve strength and flexibility. Neuromuscular re-education for posture and balance. Therapeutic activities to return to functional activities of daily living. Electronically signed by: Rosette Ivey PT, DPT Please sign and return to therapist. Thank you for your referral.
--- NOTE | 2024-08-09 15:19 | MHC.PT.DC ---
[facility] [place] Office [place] Office [place] Office [address] Melba Marti [address] [phone] F: [phone] F: [phone] F: [phone] F: [phone] Physical Therapy Discharge Report Diagnosis: adhesive capsulitis of left shoulder (RL) Date of Surgery: N/A Date of Evaluation: 06/08/24 Date of Discharge: 08/09/24 Treatments to Date: 11 Cancellations to Date: 0 No Shows to Date: 0 Discharge Status: Improved Function Independent with HEP Recommend MD Follow-up Discharge Summary: The patient was endorsing improvement in her shoulder pain and range. She does still complain of some persistent pain but it is more manageable. Due to insurance limitations she was only coming once a week and would occasionally have gaps between visits. The patient did demonstrate profound weakness of her involved upper extremity. I was questioning potential cervical involvement contributing to this; however, she does feel her strength is returning. I strongly encouraged her to seek assessment of her neck if her arm symptoms do not improve. Electronically signed by: Rosette Ivey PT, DPT Please sign and return to therapist. Thank you for your referral.
== END 2024-08-09 15:19 | disposition home or self-care (01) ==
LOC: HO.PT 07:11
PROVIDERS: PCP Physician Assistant; Visit Provider Physician Assistant
DX: M75.02 Adhesive capsulitis of left shoulder (principal)
CPT/HCPCS: 97110; 97140; 97162

== ENCOUNTER 2024-10-15 07:54 | Outpatient (REF) | payer OTHER, SELFPAY ==
--- OUTSIDE RECORDS SUMMARY | 2024-10-15 07:56 | XMS_ITS | Continuity of Care Document ---
Author Name [facility] Organization [facility] Care Team Providers Care Commercial Green Retrofit Architect Name Role Phone [facility] Unavailable Unavailable Immunizations Combined list of available immunizations from the Department of Defense and Veterans Affairs facilities. Immunization Series Date Given Administered By Site Reaction Lot Number CVX Code Drug Advanced Practice Nurse Status Comments Source COVID-19, mRNA, LNP-S, PF, [...]
--- OUTSIDE RECORDS SUMMARY | 2024-10-15 07:58 | XMS_ITS | Clinical Summary ---
Author Organization [facility] Address [address] [place], [place] [address] Phone Care Team Providers Care Assembly Line Machine Operator Name Role Phone Heath Perez MD Primary Care Provider Social History Tobacco Use Types Packs/Day Years Used Date Smoking Tobacco: Never Assessed Comments Unknown Sex and Gender Information Value Date Recorded Sex Assigned at Not on file Legal Sex Female 11:17 AM EST Gender Identity Not on file Sexual Orientation Not on file Plan of Treatment Not on file Medical Devices Not on file Insurance [employer] MEDICARE SUPPLEMENT [employer] MEDICARE SUPPLEMENT FOR LIFE MEDICARE SUPPLEMENT FOR LIFE MEDICARE SUPPLEMENT FOR LIFE MEDICARE SUPPLEMENT FOR LIFE MEDICARE SUPPLEMENT FOR LIFE MEDICARE SUPPLEMENT FOR LIFE MEDICARE SUPPLEMENT FOR LIFE MEDICARE SUPPLEMENT Care Teams Assembly Line Machine Operator Relationship Specialty Start Date End Date Heath Perez MD [address] [place] [address] [address] [place] [address] PCP - General Cardiology 03/19/20 Additional Source Comments The information contained in this document represents components of the legal health record. It is not the complete legal health record.[facility]
[2024-10-15 11:13] LABS: MANUAL DIFF FLAG NO
[2024-10-15 11:29] LABS: Hematocrit 46.9 % (37.0-47.0); Hemoglobin 15.4 g/dl (12.0-16.0); Imm Gran Abs Auto 0.01 X10*3/uL (0.00-0.03); Imm Gran Pct Auto 0.2 % (0.0-0.4); Lymphocytes Absolute Auto 2.2 X10*3/uL (1.2-4.9); Mean Corpuscular HGB Conc 32.8 g/dl (31.0-35.0); Mean Corpuscular Hemoglobin 31.8 pg (27.0-33.0); Mean Corpuscular Volume 96.7 fL (80.0-98.0); NRBC Abs Auto 0.000 X10*3/uL (0.0-0.012); NRBC Pct Auto 0.0 /100WBC (0.0-0.2); Platelet Count 245 X10*3/uL (160-400); Red Blood Count 4.85 X10*6/uL (4.20-5.50); White Blood Count 4.9 X10*3/uL (4.8-10.8)
[2024-10-15 12:04] LABS: Alanine Aminotransferase 14 U/L (0-31); Albumin Level 4.5 g/dL (3.5-5.0); Alkaline Phosphatase 94 U/L (39-117); Anion Gap 13 (12-20); Aspartate Amino Transferase 20 U/L (5-31); Blood Urea Nitrogen 12 mg/dL (9-16); Calcium 9.1 mg/dL (8.4-10.2); Carbon Dioxide 28 mmol/L (22-29); Chloride 105 mmol/L (96-108); Cholesterol 242 mg/dL (<200); Estimated Glomerular Filt Rate > 60; HDL Cholesterol 69 mg/dL (>40); Potassium 4.3 mmol/L (3.3-5.1); Sodium 142 mmol/L (135-145); Total Protein 6.8 g/dL (6.5-8.0); Triglycerides 109 mg/dL (<150)
[2024-10-15 12:09] LABS: Hemoglobin A1C 198.2510 umol/L; Total Hemoglobin (HGBA1C) 4099.6071 umol/L
== END 2024-10-15 07:55 | disposition home or self-care (01) ==
LOC: HO.WFDLDS 07:54
PROVIDERS: Visit Provider Physician Assistant
DX: E11.9 Type 2 diabetes mellitus without complications (principal); I10 Essential (primary) hypertension; E78.00 Pure hypercholesterolemia, unspecified
CPT/HCPCS: 36415; 80053; 80061; 83036; 84443; 85025

== ENCOUNTER 2024-10-17 14:23 | Outpatient (AMB) | payer OTHER, SELFPAY ==
--- NOTE | 2024-10-17 14:26 | MHC.PC.OV ---
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 Required: No Allergies hydrocodone (From Vicodin) Allergy (Mild, Verified 10/17/24 14:28) Nausea Medication List - Last Reconciled 10/17/24 by Elida Segundo PA-C bisacodyl (Dulcolax (bisacodyl)) 10 mg (2 x 5 mg) PO BEDTIME 2 days diltiazem HCl ER 120 mg PO DAILY empagliflozin (Jardiance) 10 mg PO DAILY metoprolol succinate ER 100 mg PO DAILY peg 3350-electrolytes 236-22.74-6.74 -5.86 gram (Golytely) 240 mL PO Q10M 1 day rosuvastatin 5 mg PO DAILY valsartan 160 mg PO DAILY Tobacco use date assessed: 10/17/24 Dental Screening Dental Screen Date: 10/17/24 Did you have a dental visit in the last 12 months?: No Did you have a dental problem in the last 6 months where you did not have access to dental care?: No Was dental information given to patient?: Patient has dentist HPI DM HPI Details The patient is a 59-year-old female who presents today for a follow up. Derm: Complains today of a lump on her scalp that has been there for the last few weeks. Unchanged in size. She also notices some flaking and itching of the skin on her forehead. Wonders if this is a precancer or cancerous formation. Endo: Her diabetes recently worsened a bit with an increase of her A1c up to 6.6. States that she had a few dietary indiscretions this summer. Her daughter has an eating disorder so she tries to mottle healthy eating and states that she thinks she was eating more than she probably should or the wrong kinds of foods. She is on Jardiance 10 mg. No longer on metformin and does not want to go on this. -never tried anything else. CV: Her blood pressure is managed with diltiazem 120 mg, [id number] mg and metoprolol 100 mg. Blood pressure today in the office is WNL. No chest pain, shortness on breath or palpitations. Her last LDL was 107. Goals less than 100. She is on Crestor 5 mg. Colonoscopy: scheduled in June -overdue Bone density: this was ordered, not booked by pt yet Mammo: this was ordered, not booked by pt yet Pap: She is going to call [facility] Medical History (Updated 10/17/24 @ 14:40 by Elida Segundo PA-C) Diabetes Hernia SVT (supraventricular tachycardia) HTN (hypertension) Surgical History (Updated 07/18/24 @ 09:55 by KARRIE Antonio) H/O inguinal hernia repair H/O section Family History Mother HTN (hypertension) High cholesterol Diabetes Thyroid disorder Father HTN (hypertension) High cholesterol Maternal Aunt No problems noted. Maternal Grandmother Diabetes Social History Housing: House Alcohol intake: current Patient Tobacco Use Status: Former Tobacco user Cigarette Packs Per Day: 1 Years Smoked: 12 e-Cigarette/Vaping Use: Never Used Second Hand Smoke Exposure: No service: No Current occupational status: employed Current occupation: [employer] Current occupational exposures/hazards: No Cognitive needs: No Hearing needs: No Vision needs: Yes (reading glasses) Questionnaire Thrive Questionnaire Date Thrive assessed: 03/07/24 I am a: Patient What is your living situation today?: I have a steady place to live Within the past 12 months, did the food you bought not last and you didn't have the money to get more?: Never true Within the past 12 months, did you worry whether your food would run out before you got money to buy more?: Never true Do you have trouble paying for medicines?: No Do you have trouble getting transportation to medical appointments?: No Do you have trouble paying your heating and electricity bill?: No Do you have trouble taking care of your child, family member or friend?: No Do you have trouble with day-to-day activities such as bathing, preparing meals, shopping, managing finances, etc.?: No Are you currently unemployed and looking for a job?: No Are you interested in more education?: No Please select the resources that you would like help with: None Currently or been in a relationship where the following occur: No concerns reported THRIVE Score: 0 AUDIT C Alcohol Use Questionnaire (AUDIT-C) 1. How often do you have a drink containing alcohol?: 2-3 times a week 2. How many drinks containing alcohol do you have on a typical day when you are drinking?: 1 or 2 3. How often do you have six or more drinks on one occasion?: Never Total Score: 3 ABBIE-7 AMB Questionnaire ABBIE-7 Date ABBIE - 7 assessed: 03/07/24 Source: Developed by Drs. Venkatesh Yang, Yany Meredith, Campos Castro and colleagues, with an educational jose elias from [employer]. Physical exam (Primary Care) Vital Signs: Last Vital Signs Pulse 81 10/17/24 14:30 Resp 14 10/17/24 14:30 BP 126/84 10/17/24 14:30 Pulse Ox 98 10/17/24 14:30 Oxygen Delivery Method Room Air 10/17/24 14:30 BMI result Body Mass Index 36.2 Tobacco/Smoking Status: Tobacco use Status Tobacco use date assessed 10/17/24 10/17/24 14:32 Patient Tobacco Use Status Former Tobacco user (quit 20 10/17/24 14:27 years ago) e-Cigarette/Vaping Use Never Used 10/17/24 14:27 Thrive Assessment: Date of Thrive Assessment Date Thrive assessed 03/07/24 10/17/24 14:27 Currently or been in a relationship where the following occur: No concerns reported Const Orientation/consciousness: patient oriented x3 HENMT Ears: hearing grossly normal bilaterally Neck Thyroid: Thyroid normal Lymphatic: no lymphadenopathy noted Resp Auscultation: clear to auscultation bilaterally Cardio Rate: regular rate Rhythm: regular rhythm Heart sounds: S1 normal heart sound present and S2 normal heart sound present GI Inspection: Yes normal to inspection Palpation (GI): Soft to palpation and Other GI palpation findings present (nontender, no cva tenderness) Auscultation: normoactive bowel sounds Rectal Exam - Female: deferred Skin Other: There is a flaky area of skin noted about the left eyebrow. Upright 1 cm by 1 cm subcutaneous, slightly mobile lump noted on the scalp by her center part Neuro General: patient oriented x3, gait normal and no focal motor deficits Results Reviewed Results Reviewed: Laboratory Tests 10/15/24 07:56 Creatinine 0.59 Estimated GFR > 60 Fasting Glucose 159 H Hemoglobin A1c % 6.6 H AST 20 ALT 14 Triglycerides 109 Cholesterol 242 H LDL Cholesterol, Calc 152 H HDL Cholesterol 69 Coding Level of Care Code Est Pt Level 4 (34233) Complex EM visit Add On G2211 Diagnoses Scalp lump R22.0 Facial lesion L98.9 Primary hypertension I10 Hypertension type: primary hypertension Controlled type 2 diabetes mellitus E11.9 Pure hypercholesterolemia E78.00 Hyperlipidemia type: pure hypercholesterolemia Assessment & Plan Assessment & Plan (1) Scalp lump: Code(s): R22.0 - Localized swelling, mass and lump, head Category: Medical Plan: Discussed that it feels consistent with a cyst. Ultrasound ordered. Referral to General surgery (2) Facial lesion: Code(s): L98.9 - Disorder of the skin and subcutaneous tissue, unspecified Category: Medical Plan: Referral to dermatology (3) HTN (hypertension): Code(s): I10 - Essential (primary) hypertension Category: Medical Qualifiers: Hypertension type: primary hypertension Qualified Code(s): I10 - Essential (primary) hypertension Plan: Blood pressure today WNL (4) Controlled type 2 diabetes mellitus: Code(s): E11.9 - Type 2 diabetes mellitus without complications Category: Medical Plan: We did review her A1c has worsened slightly but she had the dietary indiscretions over the summer. She is going to control this with her lifestyle and does not want to increase the Jardiance. (5) Hyperlipidemia: Code(s): E78.5 - Hyperlipidemia, unspecified Category: Medical Qualifiers: Hyperlipidemia type: pure hypercholesterolemia Qualified Code(s): E78.00 - Pure hypercholesterolemia, unspecified Plan: As above. We will recheck labs in a few months. Orders: Orders Complete Blood Count Auto Diff 10/17/24 E11.9 - Type 2 diabetes mellitus without complications, E78.00 - Pure hypercholesterolemia, unspecified, I10 - Essential (primary) hypertension Hemoglobin A1c 10/17/24 E11.9 - Type 2 diabetes mellitus without complications, E78.00 - Pure hypercholesterolemia, unspecified, I10 - Essential (primary) hypertension, R73.01 - Impaired fasting glucose Lipid Panel 10/17/24 E11.9 - Type 2 diabetes mellitus without complications, E78.00 - Pure hypercholesterolemia, unspecified, I10 - Essential (primary) hypertension US soft tiss head and/or neck 10/17/24 R22.0 - Localized swelling, mass and lump, head Comprehensive Reva. Panel Fast 10/17/24 E11.9 - Type 2 diabetes mellitus without complications, E78.00 - Pure hypercholesterolemia, unspecified, I10 - Essential (primary) hypertension Referrals General Surgery Referral R22.0 - Localized swelling, mass and lump, head Dermatology Referral L98.9 - Disorder of the skin and subcutaneous tissue, unspecified
[2024-10-17 14:30] VITALS: BP 126/84; PULSE 81; RESP 14; O2SAT 98; BMI 36.2
--- OUTSIDE RECORDS SUMMARY | 2024-10-17 15:27 | XMS_ITS | Clinical Summary ---
Author Organization [facility] Address [address] [place], [place] [id number] Phone Care Team Providers Care Parts Counter Salesperson Name Role Phone Heath Perez MD Primary [...] file Medical Devices Not on file Insurance [facility] MEDICARE SUPPLEMENT [facility] MEDICARE SUPPLEMENT [employer] MED[employer]ARE SUPPLEMENT [employer] MEDICARE SUPPLEMENT [employer] MEDICARE SUPPLEMENT [employer] MEDICARE SUPPLEMENT [employer] MEDICARE SUPPLEMENT [employer] MEDICARE SUPPLEMENT [employer] MEDICARE SUPPLEMENT Care Teams Parts Counter Salesperson Relationship Specialty Start Date End Date Heath Perez MD [address] [place] [address] Durga WILSON [address] [place] [address] PCP - General Cardiology 03/19/20 Additional Source Comments The information contained in this document represents components of the legal health record. It is not the complete legal health record.[facility]
--- OUTSIDE RECORDS SUMMARY | 2024-10-17 15:27 | XMS_ITS | Encounter Summary ---
Author Organization [facility] Address [address] [address] Phone Care Team Providers Care Financial Service Representative Name Role Phone Heath Perez MD Primary Care Provider Reason for Referral * Consultation (Elective) - Closed Specialty Diagnoses / Procedures Referred By Contac t Referred To Contact Diagnoses CHRISTIE (obstructive sleep apnea) Heath Perez MD [address] [address] Phone: tel: fax: [facility] [address] [place] [address] Phone: tel: Referral ID Status Reason Start Date Expiration Date Visits Re quested Visits Authorized [id number] Closed 03/21/2020 03/21/2021 1 1 Encounter Details Date Type Department Care Team (Latest Contact Info) Description 03/21/2020 Transcribe Orders [facility] [address] [place] [address] 3rd Floor, [address] [place] [id number] Juan Cortes MD [address] [place] [phone] [email or web address] CHRISTIE (obstructive sleep apnea) (Primary Dx) Social History Tobacco Use Types Packs/Day Years Used Date Smoking Tobacco: Never Assessed Comments Unknown Sex and Gender Information Value Date Recorded Sex Assigned at Not on file Legal Sex Female 11:17 AM EST Gender Identity Not on file Sexual Orientation Not on file documented as of this encounter Plan of Treatment Scheduled Referrals Name Type Priority Associated Diagnoses Order Schedule Ambulatory referral to [facility] Sleep Medicine Outpatient Referral Routine CHRISTIE (obstructive sleep apnea) Ordered: 03/21/2020 documented as of this encounter Visit Diagnoses Diagnosis CHRISTIE (obstructive sleep apnea)- Primary Obstructive sleep apnea (adult) (pediatric) documented in this encounter Care Teams Financial Service Representative Relationship Specialty Start Date End Date Heath Perez MD [address] [facility] [address] [place] [address] PCP - General Cardiology 03/19/20 documented as of this encounter Additional Source Comments The information contained in this document represents components of the legal health record. It is not the complete legal health record.[facility]
== END 2024-10-17 14:46 | disposition home or self-care (01) ==
LOC: HO.HMCFM 14:24
PROVIDERS: PCP Physician Assistant; Visit Provider Physician Assistant
DX: R22.0 Localized swelling, mass and lump, head (principal); L98.9 Disorder of the skin and subcutaneous tissue, unspecified; I10 Essential (primary) hypertension; E11.9 Type 2 diabetes mellitus without complications; E78.00 Pure hypercholesterolemia, unspecified

== ENCOUNTER → 2024-10-17 14:23 | Outpatient (BNVA) | payer OTHER, SELFPAY | PROVIDERS: PCP Physician Assistant; Visit Provider Physician Assistant | DX: E11.9 Type 2 diabetes mellitus without complications (principal); R22.0 Localized swelling, mass and lump, head; L98.9 Disorder of the skin and subcutaneous tissue, unspecified; E78.00 Pure hypercholesterolemia, unspecified; I10 Essential (primary) hypertension | CPT/HCPCS: 99212 ==

== ENCOUNTER 2024-11-28 10:53 | Outpatient (REF) | payer OTHER, SELFPAY ==
--- NOTE | ~2024-11-28 | US_ITS ---
CLINICAL HISTORY: R22.0 - Localized swelling, mass and lump, head US head and neck nonvascular Comparison: None Findings: Sonographic evaluation there of clinical concern frontal scalp region showed no discrete solid or cystic mass shadowing calcifications. Underlying calvarial cortical tables remain intact. Impression: No sonographic correlate to the area of clinical concern frontal scalp region. This document has been electronically signed by: Peter Diaz MD on 11/28/2024 12:49:35
== END 2024-11-28 10:54 | disposition home or self-care (01) ==
LOC: HO.HMGCX 10:53
PROVIDERS: PCP Physician Assistant; Visit Provider Physician Assistant
DX: R22.0 Localized swelling, mass and lump, head (principal)
CPT/HCPCS: 76536

== ENCOUNTER → 2024-11-28 10:55 | Outpatient (BNV) | payer OTHER, SELFPAY | PROVIDERS: PCP Physician Assistant; Visit Provider Radiology Diagnostic Radiology | DX: R22.0 Localized swelling, mass and lump, head (principal) | CPT/HCPCS: 76536 ==

== ENCOUNTER 2024-11-30 08:41 | Outpatient (AMB) | payer OTHER, SELFPAY ==
--- NOTE | 2024-11-30 08:43 | MHC.OFFVIS ---
Vital Signs 11/30/24 08:51 Height 5 ft 3 in Weight 209 lb 6 oz BMI 37.1 Intake Visit Reasons: Localized swelling, mass and lump, head Intake Note: Patient is seen in office for evaluation of a mass on the forehead. Pt c/o: reports no pain or discomfort, reports had headaches in the past but she stopped putting her readers on her head and noticed the headaches went away, she had an Ultrasound on her head 2 days ago, unremarkable. 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: No Accompanied by: Self / Same As Patient Allergies hydrocodone (From Vicodin) Allergy (Mild, Verified 11/30/24 08:52) Nausea Medication List - Last Reconciled 11/30/24 by Shivam Wynne MD bisacodyl (Dulcolax (bisacodyl)) 10 mg (2 x 5 mg) PO BEDTIME 2 days diltiazem HCl ER 120 mg PO DAILY empagliflozin (Jardiance) 10 mg PO DAILY metoprolol succinate ER 100 mg PO DAILY peg 3350-electrolytes 236-22.74-6.74 -5.86 gram (Golytely) 240 mL PO Q10M 1 day rosuvastatin 5 mg PO DAILY valsartan 160 mg PO DAILY HPI Comments Details: 59-year-old female patient presenting with concerns about a bump on the frontal scalp. She 1st noted this in September 2024 when she notice pain associated with 2 bumps in the frontal scalp. She denied any redness or discharge from the site. Her friend noted that she frequently keeps her reading glasses on her head in the exact same area and now feels this may be the cause of the 2 bumps. Stopped using the head to restore her glasses now feels much improved. She denies any current pain when the site is palpated. She did undergo ultrasound evaluation of the scalp at this location and no cyst or other mass was identified. She denies a previous history of scalp problems. [facility] Medical History Diabetes Hernia SVT (supraventricular tachycardia) HTN (hypertension) Surgical History H/O inguinal hernia repair H/O section Family History Mother HTN (hypertension) High cholesterol Diabetes Thyroid disorder Father HTN (hypertension) High cholesterol Maternal Aunt No problems noted. Maternal Grandmother Diabetes Social History Housing: House Alcohol intake: current Patient Tobacco Use Status: Former Tobacco user Cigarette Packs Per Day: 1 Years Smoked: 12 e-Cigarette/Vaping Use: Never Used Second Hand Smoke Exposure: No service: No Current occupational status: employed Current occupation: [employer] Current occupational exposures/hazards: No Cognitive needs: No Hearing needs: No Vision needs: Yes (reading glasses) Review of Systems Const All systems reviewed & are unremarkable except as noted in HPI and below Physical Exam Const General: cooperative and no acute distress Nutritional Appearance: well nourished Orientation/consciousness: patient oriented x3 Limitations: no limitations HEENT Head: Yes normocephalic and Yes atraumatic Head images:  1. Site of the 2 palpable indentations in the scalp. No cystic lesion is palpable. This appears to be scarring of the subcutaneous tissue rather than any mass. No bony deficit or deformity is identified. Ears: hearing grossly normal bilaterally Resp Effort & Inspection: normal respiratory effort, no audible wheezes, no cough and no respiratory distress Cardio Jugular venous distension: no JVD GI Inspection: Yes normal to inspection Skin Other: Warm, dry, no rash Neuro General: patient oriented x3 Extrem General: Yes no clubbing, cyanosis or edema Assessment & Plan Assessment & Plan (1) Scalp lump: Code(s): R22.0 - Localized swelling, mass and lump, head Category: Medical Plan Patient was found to have to lumps in the frontal scalp but no definite cystic lesion or mass. Findings are consistent with trauma from her eyeglasses. She is no longer keeping her eyeglasses in this location and generally feels much improved. No surgical intervention is recommended at this time. She is welcome to call for any new concerns. Coding Level of Care Code New Pt Level 4 (51194) Diagnoses Scalp lump R22.0
[2024-11-30 08:51] VITALS: BMI 37.1
== END 2024-11-30 09:05 | disposition home or self-care (01) ==
PROVIDERS: PCP Physician Assistant; Visit Provider Surgery
DX: R22.0 Localized swelling, mass and lump, head (principal)
CPT/HCPCS: 99204

== ENCOUNTER → 2024-11-30 08:41 | Outpatient (BNVA) | payer OTHER, SELFPAY | PROVIDERS: PCP Physician Assistant; Visit Provider Surgery | DX: R22.0 Localized swelling, mass and lump, head (principal) | CPT/HCPCS: 99202 ==